=== PATIENT | female | born 1960 | race Caucasian/White ===

== ENCOUNTER → 2016-09-28 | Outpatient (CLI) | payer BC ==
[~2016-09-28] MED LIST: /AMLO25TA PO; ANOR1AER INH; ASPI1TAB PO; ATOR40TA PO; BACITAB3 PO; DEPA500T; DYAZ37.5 PO; FERR325T PO; LEXA1TAB2 PO; NICO14PA TD; OSTETAB4 PO; PREM0.45 PO; PRIL20TA2 PO; REQU1TAB14 PO; SARAFEM PO; TYLE325T5 PO; ULTR50TA PO; VITA200016 PO; VITA20008 PO; VITA500C24 PO; WELLTAB40 PO; mvi
--- NOTE | 2016-09-28 14:02 | REPMRS ---
Patient History The patient states she had a clinical breast exam in 2015. Patient is postmenopausal. No known family history of cancer. Took hormonal contraceptives for 5 years. Took estrogen for 4 years. Took progesterone for 4 years. Digital Mammo Screening Bilat: September 28, 2016 - Exam #: [id number] Bilateral CC and MLO view(s) were taken. Technologist: Starla Villanueva, Technologist Prior study comparison: January 22, 2014, bilateral bilat screen digital mammo, performed at [facility] ([facility]). June 27, 2012, bilateral bilat screen digital mammo, performed at [facility] ([facility]). FINDINGS: There are scattered fibroglandular densities. There has been no change in the appearance of the mammogram from the prior studies. There is a mild amount of residual fibroglandular tissue which is fairly symmetric. There is no interval development of dominant mass, architectural distortion, or clustered microcalcification suggestive of malignancy. ASSESSMENT: BI-RADS/ACR category 1 mammogram. Negative. Recommendation Routine screening mammogram in 1 year (for women over age 40). This mammogram was interpreted with the aid of an FDA-approved computer-aided dectection system. Electronically Signed By: Josef Parker MD 09/28/16 [id number]
== END ==
LOC: M RAD 13:22
PROVIDERS: ATTEND Nurse Practitioner Adult Health
DX: Z12.31 Encounter for screening mammogram for malignant neoplasm of breast (principal); Z78.0 Asymptomatic menopausal state; Z79.3 Long term (current) use of hormonal contraceptives; Z79.899 Other long term (current) drug therapy

== ENCOUNTER → 2016-12-14 | Outpatient (REF) | payer BC ==
[~2016-12-14] MED LIST changes: -ATOR40TA PO; +ATOR40TA75 PO; +BACITAB PO; -BACITAB3 PO
[2016-12-14 15:18] LABS: RBC, URINE 0-1 /hpf (0-3); SQUAMOUS EPITHELIAL CELL URINE MOD AMOUNT /hpf (SMALL AMT); WBC, URINE NONE SEEN /hpf (0-3)
[2016-12-14 15:19] LABS: BACTERIA, URINE NONE SEEN; HYALINE CAST, URINE NONE SEEN /lpf (0-1); MICROSCOPIC EXAM PERFORMED
== END ==
LOC: M LAB REF 14:15
PROVIDERS: ATTEND Nurse Practitioner Adult Health
DX: R31.9 Hematuria, unspecified (principal)

== ENCOUNTER → 2017-03-26 | Outpatient (REF) | payer BC ==
[2017-03-26 18:00] LABS: URIC ACID 6.8 MG/DL (2.6-6.0)
== END ==
LOC: M LAB REF 16:47
PROVIDERS: ATTEND Nurse Practitioner Adult Health
DX: M25.50 Pain in unspecified joint (principal); M10.9 Gout, unspecified

== ENCOUNTER → 2017-04-01 | Outpatient (CLI) | payer BC ==
--- NOTE | 2017-04-02 05:19 | REP ---
Clinical: Pain centered at the first toe. Technique: AP, lateral, bilateral oblique views of the right foot. Findings: A fractured sesamoid bone(s) underlying the head of the first metatarsal bone are suggested and should be correlated with physical examination and mechanism of injury. Remainder examination appears normal. Impression: Fractured sesamoid bones are suspected at the head of the first metatarsal bone. Signed by Shayen Vigil MD 04/02/2017 05:11 A
--- NOTE | 2017-04-02 05:31 | REP ---
Clinical: Pain . Technique: AP, lateral, bilateral oblique and sunrise views left knee . Findings: The osseous structures and joint spaces are intact and normal for age. There is no evidence for acute fracture or dislocation. No joint effusion is appreciated. Surrounding soft tissues are unremarkable. No subcutaneous emphysema or radiodense foreign body. Impression: Age-appropriate left knee radiographs. No acute fracture or dislocation. Signed by Shayne Vigil MD 04/02/2017 05:23 A
== END ==
LOC: M RAD 16:51
PROVIDERS: ATTEND Nurse Practitioner Adult Health
DX: M25.562 Pain in left knee (principal)

== ENCOUNTER 2017-05-27 17:09 | Emergency (ER) | payer BC ==
[2017-05-27] MEDS: IBUPROFEN 600 MG TAB PO (20:30)
[2017-05-27] MEDS: PERCOCET 5MG/325MG TAB PO (20:31)
== END 2017-05-27 20:43 | disposition home or self-care (01) ==
LOC: M ED 17:09
DX: M25.561 Pain in right knee (principal); X50.1XXA Overexertion from prolonged static or awkward postures, initial encounter; Y92.099 Unspecified place in other non-institutional residence as the place of occurrence of the external cause; Y93.42 Activity, yoga; I10 Essential (primary) hypertension; K21.9 Gastro-esophageal reflux disease without esophagitis; F41.9 Anxiety disorder, unspecified; F17.200 Nicotine dependence, unspecified, uncomplicated; Z79.82 Long term (current) use of aspirin; Z79.899 Other long term (current) drug therapy; Z88.0 Allergy status to penicillin
CPT/HCPCS: 73564

== ENCOUNTER 2017-06-17 08:54 | Day surgery (SDC) | payer BC ==
[~2017-06-17 08:54] MED LIST changes: -/AMLO25TA PO; -ANOR1AER INH; -ASPI1TAB PO; -ATOR40TA75 PO; -BACITAB PO; -DEPA500T; -DYAZ37.5 PO; -FERR325T PO; -LEXA1TAB2 PO; +LIDOCAINE 2% INJ 100 MG/5 ML SDV (FOR ANES.) As Ordered; -NICO14PA TD; -OSTETAB4 PO; -PREM0.45 PO; -PRIL20TA2 PO; +PROPOFOL 200 MG/20 ML VIAL As Ordered; -REQU1TAB14 PO; -SARAFEM PO; -TYLE325T5 PO; -ULTR50TA PO; -VITA200016 PO; -VITA20008 PO; -VITA500C24 PO; -WELLTAB40 PO; -mvi
[2017-06-17] MEDS: NS 1,000 ML IV (09:30)
== END 2017-06-17 11:11 | disposition home or self-care (01) ==
LOC: M OPP 08:54
DX: Z12.11 Encounter for screening for malignant neoplasm of colon (principal); Z86.010 Personal history of colon polyps; D12.5 Benign neoplasm of sigmoid colon; K64.0 First degree hemorrhoids; K57.30 Diverticulosis of large intestine without perforation or abscess without bleeding; R12 Heartburn; K22.8 Other specified diseases of esophagus; K44.9 Diaphragmatic hernia without obstruction or gangrene; I10 Essential (primary) hypertension; E78.5 Hyperlipidemia, unspecified; K21.9 Gastro-esophageal reflux disease without esophagitis; G56.00 Carpal tunnel syndrome, unspecified upper limb; M19.90 Unspecified osteoarthritis, unspecified site; M54.9 Dorsalgia, unspecified; Z86.79 Personal history of other diseases of the circulatory system; E55.9 Vitamin D deficiency, unspecified; D64.9 Anemia, unspecified; F41.9 Anxiety disorder, unspecified; F32.9 Major depressive disorder, single episode, unspecified; R51 Headache; J44.9 Chronic obstructive pulmonary disease, unspecified; G47.30 Sleep apnea, unspecified; R06.83 Snoring; F17.210 Nicotine dependence, cigarettes, uncomplicated; Z88.0 Allergy status to penicillin; Z79.82 Long term (current) use of aspirin; Z79.899 Other long term (current) drug therapy; Z80.52 Family history of malignant neoplasm of bladder
CPT/HCPCS: 45380

== ENCOUNTER → 2017-06-27 | Outpatient (CLI) | payer BC | LOC: M RAD 16:24 | DX: M25.561 Pain in right knee (principal) ==

== ENCOUNTER → 2017-08-14 | Outpatient (REF) | payer BC ==
[2017-08-14 17:43] LABS: URIC ACID 6.6 MG/DL (2.6-6.0)
== END ==
LOC: M LAB REF 16:40
DX: R79.89 Other specified abnormal findings of blood chemistry (principal); R30.0 Dysuria
CPT/HCPCS: 84550

== ENCOUNTER → 2018-04-04 | Outpatient (REF) | payer BC ==
[2018-04-04 22:01] LABS: APPEARANCE, URINE HAZY (CLEAR); BACTERIA, URINE AUTO 1+ (NEGATIVE); BILIRUBIN, URINE AUTO NEGATIVE (NEGATIVE); BLOOD, URINE BLOOD 2+ (NEGATIVE); COLOR, URINE YELLOW (YELLOW); GLUCOSE, URINE (UA) AUTO NEGATIVE (NEGATIVE); KETONE, URINE AUTO NEGATIVE (NEGATIVE); LEUKOCYTE ESTERASE, URINE AUTO 3+ (NEGATIVE); NITRITE, URINE AUTO NEGATIVE (NEGATIVE); PROTEIN, URINE AUTO NEGATIVE (NEGATIVE); RBC, URINE AUTO 1 /HPF (0-3); SPECIFIC GRAVITY URINE AUTO 1.009 (1.002-1.035); SQUAMOUS EPITHELIAL CELL UR AU 0 /HPF (0-6); UROBILINOGEN, URINE AUTO 0.2 mg/dL (0.0-2.0); WBC, URINE AUTO 1 /HPF (0-3)
== END ==
LOC: M LAB REF 10:10
DX: N39.0 Urinary tract infection, site not specified (principal)
CPT/HCPCS: 81001

== ENCOUNTER → 2018-04-11 | Outpatient (REF) | payer BC ==
[~2018-04-11] MED LIST changes: +/AMLO25TA PO; +AMLO5TAB4; +ANOR1AER INH; +ASPI1TAB PO; +ATOR40TA75 PO; +BACITAB PO; +BENA10TA6; +DEPA500T; +DYAZ37.5 PO; +FERR325T PO; +LEXA1TAB2 PO; -LIDOCAINE 2% INJ 100 MG/5 ML SDV (FOR ANES.) As Ordered; +MELO7.5T7; +NICO14PA TD; +OSTETAB4 PO; +POTA20TA6; +PREM0.45 PO; +PRIL20TA2 PO; -PROPOFOL 200 MG/20 ML VIAL As Ordered; +PROT20TA11 PO; +REQU1TAB14 PO; +SARAFEM PO; +TRAM50TA2 PO; +TYLE325T5 PO; +ULTR50TA PO; +VITA200016 PO; +VITA20008 PO; +VITA400C7 PO; +VITA500C24 PO; +VITA500T PO; +WELLTAB40 PO; +mvi
[2018-04-11 17:58] LABS: PERCENT SATURATION 29.6 % (13.2-45.0)
== END ==
LOC: M LAB REF 17:11
PROVIDERS: ATTEND Nurse Practitioner Adult Health
DX: N18.9 Chronic kidney disease, unspecified (principal); D63.1 Anemia in chronic kidney disease

== ENCOUNTER → 2018-04-24 | Outpatient (REF) | payer BC | LOC: M LAB REF 16:33 | PROVIDERS: ATTEND Nurse Practitioner Adult Health | DX: R35.0 Frequency of micturition (principal) ==

== ENCOUNTER → 2018-07-30 | Outpatient (REF) | payer BC ==
[~2018-07-30] MED LIST changes: -/AMLO25TA PO; -AMLO5TAB4; +AMLO5TAB6; -ASPI1TAB PO; +ASPI81TA26 PO; +NICO14DI20 TD; -NICO14PA TD; +NORV2TAB PO
[2018-07-30 21:56] LABS: AMORPHOUS SEDIMENT SMALL (NEGATIVE); APPEARANCE, URINE CLEAR (CLEAR); BACTERIA, URINE AUTO 2+ (NEGATIVE); BILIRUBIN, URINE AUTO NEGATIVE (NEGATIVE); BLOOD, URINE BLOOD 2+ (NEGATIVE); COLOR, URINE YELLOW (YELLOW); GLUCOSE, URINE (UA) AUTO NEGATIVE (NEGATIVE); KETONE, URINE AUTO NEGATIVE (NEGATIVE); LEUKOCYTE ESTERASE, URINE AUTO 1+ (NEGATIVE); NITRITE, URINE AUTO POSITIVE (NEGATIVE); PROTEIN, URINE AUTO NEGATIVE (NEGATIVE); RBC, URINE AUTO 1 /HPF (0-3); SPECIFIC GRAVITY URINE AUTO 1.006 (1.002-1.035); SQUAMOUS EPITHELIAL CELL UR AU 2 /HPF (0-6); UROBILINOGEN, URINE AUTO 0.2 mg/dL (0.0-2.0); WBC, URINE AUTO 17 /HPF (0-3)
== END ==
LOC: M LAB REF 09:20
PROVIDERS: ATTEND Physician Assistant
DX: N39.0 Urinary tract infection, site not specified (principal)

== ENCOUNTER → 2018-08-28 | Outpatient (CLI) | payer BC ==
--- NOTE | 2018-08-29 03:29 | REP ---
Clinical: Hypertension and chronic medical renal disease. Technique: Parker scale and color Doppler evaluation of the kidneys and renal vasculature using curved array transducer. Findings: The kidneys are essentially normal in contour size and echogenicity and reniform shape without hydronephrosis, nephrolithiasis, cystic or renal mass lesion. Right kidney measures 10.6 x 5.7 x 5.5 cm . Left kidney measures 10.8 x 5.4 x 5.7 cm. Bladder is incompletely distended and grossly normal by current evaluation. Color Doppler evaluation of the renal vasculature demonstrates normal arterial wave patterns, velocities, renal aortic ratios, resistive indices and the acceleration time. No sonographic evidence for renal arterial stenosis noted. Renal vein is patent. Right Kidney: Peak arterial velocity: 148 cm/sec . Renal aortic ratio: 1.7 . Resistive indices: 0.76 - 0.82 . Acceleration times: 0.042 - 0.044 . Left kidney: Peak arterial velocity: 140 cm/sec . Renal aortic ratio: 1.6 . Resistive indices: 0.78 - 0.79 . Acceleration times: 0.026 - 0.048 . Impression: 1. Essentially normal appearance to the bilateral kidneys. 2. Subtle increased resistive indices alone are nonspecific. No definite sonographic evidence to suggest hypertension. Clinical correlation is warranted and if necessary consider CTA or MRA evaluation of the renal arteries. Electronically Signed by Shayne Vigil MD 08/29/2018 03:22 A
== END ==
LOC: M RAD 06:15
PROVIDERS: ATTEND Nurse Practitioner Adult Health
DX: Z86.79 Personal history of other diseases of the circulatory system (principal)

== ENCOUNTER → 2018-09-10 | Outpatient (REF) | payer BC ==
[2018-09-10 17:19] LABS: APPEARANCE, URINE CLEAR (CLEAR); BACTERIA, URINE AUTO NEGATIVE (NEGATIVE); BILIRUBIN, URINE AUTO NEGATIVE (NEGATIVE); BLOOD, URINE BLOOD 1+ (NEGATIVE); COLOR, URINE YELLOW (YELLOW); GLUCOSE, URINE (UA) AUTO NEGATIVE (NEGATIVE); KETONE, URINE AUTO NEGATIVE (NEGATIVE); LEUKOCYTE ESTERASE, URINE AUTO NEGATIVE (NEGATIVE); NITRITE, URINE AUTO NEGATIVE (NEGATIVE); PROTEIN, URINE AUTO NEGATIVE (NEGATIVE); RBC, URINE AUTO 14 /HPF (0-3); SPECIFIC GRAVITY URINE AUTO 1.013 (1.002-1.035); SQUAMOUS EPITHELIAL CELL UR AU 3 /HPF (0-6); UROBILINOGEN, URINE AUTO 0.2 mg/dL (0.0-2.0); WBC, URINE AUTO 1 /HPF (0-3)
== END ==
LOC: M SMT 16:55
PROVIDERS: ATTEND Nurse Practitioner Women's Health
DX: N39.0 Urinary tract infection, site not specified (principal)

== ENCOUNTER → 2018-09-25 | Outpatient (REF) | payer BC | LOC: M SMT 13:36 | PROVIDERS: ATTEND Podiatrist | DX: R31.29 Other microscopic hematuria (principal) ==

== ENCOUNTER → 2018-11-25 | Outpatient (REF) | payer BC ==
[~2018-11-25] MED LIST changes: -BENA10TA6; +BENA10TA9
== END ==
LOC: M LAB REF 17:04
PROVIDERS: ATTEND Nurse Practitioner Adult Health
DX: M10.9 Gout, unspecified (principal)

== ENCOUNTER → 2019-01-20 | Outpatient (REF) | payer BC ==
[2019-01-20 14:58] LABS: BACTERIA, URINE AUTO NEGATIVE (NEGATIVE); RBC, URINE AUTO 7 /HPF (0-3); SQUAMOUS EPITHELIAL CELL UR AU 1 /HPF (0-6); WBC, URINE AUTO 0 /HPF (0-3)
== END ==
LOC: M SMT 13:00
PROVIDERS: ATTEND Specialist
DX: R31.29 Other microscopic hematuria (principal)

== ENCOUNTER → 2019-01-22 | Outpatient (REF) | payer BC | LOC: M SMT 18:26 | PROVIDERS: ATTEND Specialist | DX: R31.29 Other microscopic hematuria (principal) ==

== ENCOUNTER 2019-01-29 18:28 | Emergency (ER) | payer BC ==
[~2019-01-29] VITALS: Ht 157.5 cm; Wt 97.7 kg
--- NOTE | 2019-01-29 19:35 | REPVR ---
PROCEDURE INFORMATION: Exam: US Duplex Left Lower Extremity Veins, Limited Exam date and time: 01/29/2019 7:24 PM Clinical history: 58 years old, female; Pain; Leg, lower; Left; Additional info: Lle pain; R/O dvt TECHNIQUE: Imaging protocol: Real-time Duplex ultrasound of the Left Lower Extremity with 2-D gruber scale, color Doppler flow and spectral waveform analysis with image documentation. Limited exam focused on the left lower extremity veins. COMPARISON: US Duplex, Ext,LOWER veins,unilat 04/06/2015 2:23 PM FINDINGS: Left deep veins: Unremarkable. The common femoral, femoral, proximal profunda femoral and popliteal veins are patent without thrombus. Normal Doppler waveforms. Normal compressibility and/or augmentation response. Left superficial veins: Unremarkable. Saphenofemoral junction is patent without thrombus. Soft tissues: Unremarkable. IMPRESSION: No DVT of the left lower extremity veins. Electronically signed by: Jossue Foley On 01/29/2019 19:35:10 PM
[2019-01-29 20:24] VITALS: BP 143/70
== END 2019-01-29 20:45 | disposition home or self-care (01) ==
LOC: M ED 18:28
DX: M79.662 Pain in left lower leg (principal); I10 Essential (primary) hypertension; K21.9 Gastro-esophageal reflux disease without esophagitis; F17.200 Nicotine dependence, unspecified, uncomplicated; Z79.82 Long term (current) use of aspirin; Z79.899 Other long term (current) drug therapy; Z88.0 Allergy status to penicillin

== ENCOUNTER → 2019-03-12 | Outpatient (REF) | payer BC ==
[2019-03-12 18:31] LABS: COMPLEMENT C3 131 MG/DL (90-180); COMPLEMENT C4 27 MG/DL (10-40); RHEUMATOID FACTOR QUANT < 10.0 IU/ML (<15.0)
[2019-03-13 09:18] LABS: HEPATITIS B SURFACE ANTIBODY POSITIVE (POSITIVE)
[2019-03-13 09:22] LABS: HEPATITIS B SURFACE ANTIGEN NEGATIVE (NEGATIVE)
[2019-03-13 09:48] LABS: HEPATITIS B CORE ANTIBODY IGM NEGATIVE (NEGATIVE)
[2019-03-17 14:07] LABS: ANCA-ATYPICAL <1:20 titer (Neg:<1:20); ANTI DS-DNA AB Negative (Negative); ANTI-GLOMERULAR BASEMENT MEMB 4 units (0-20); ANTINUCLEAR ANTIBODIES DIRECT Negative (Negative); CYTOPLASMIC NEUTROP AB ANCA-C <1:20 titer (Neg:<1:20); PERINUCLEAR AB ANCA-P <1:20 titer (Neg:<1:20); SJOGREN'S ANTI SS-A <0.2 AI (0.0-0.9); SJOGREN'S ANTI SS-B <0.2 AI (0.0-0.9)
== END ==
LOC: M LAB REF 17:26
PROVIDERS: ATTEND Internal Medicine Nephrology
DX: R31.9 Hematuria, unspecified (principal)

== ENCOUNTER → 2019-03-24 | Outpatient (CLI) | payer BC ==
[2019-03-24 18:18] LABS: BASO # 0.1 10^3/uL (0.0-0.2); BASO % 0.5 % (0.0-1.0); EOS # 0.3 10^3/uL (0.0-0.5); EOS % 2.8 % (0.0-3.0); HEMATOCRIT 37.4 % (36.0-47.0); HEMOGLOBIN 12.4 g/dl (12.0-15.5); LYMPH # 2.7 10^3/uL (1.5-5.0); LYMPH % 25.7 % (24.0-44.0); MEAN CORPUSCULAR HEMOGLOBIN 32.8 pg (27.0-33.0); MEAN CORPUSCULAR HGB CONC 33.2 g/dl (32.0-36.5); MEAN CORPUSCULAR VOLUME 98.9 fl (80.0-96.0); MONO # 0.7 10^3/uL (0.0-0.8); MONO % 6.4 % (0.0-5.0); NEUTROPHILS # 6.6 10^3/uL (1.5-8.5); NEUTROPHILS % 63.9 % (36.0-66.0); PLATELET COUNT, AUTOMATED 318 10^3/uL (150-450); RED BLOOD COUNT 3.78 10^6/uL (4.00-5.40); WHITE BLOOD COUNT 10.4 10^3/uL (4.0-10.0)
[2019-03-24 18:43] LABS: ALBUMIN 3.8 GM/DL (3.2-5.2); PERCENT SATURATION 21.1 % (13.2-45.0)
== END ==
LOC: M LAB 16:49
PROVIDERS: ATTEND Orthopaedic Surgery
DX: Z01.818 Encounter for other preprocedural examination (principal); M16.12 Unilateral primary osteoarthritis, left hip; M25.559 Pain in unspecified hip

== ENCOUNTER → 2019-04-07 | Outpatient (CLI) | payer BC | LOC: M PT 15:32 | PROVIDERS: ATTEND Orthopaedic Surgery | DX: M16.12 Unilateral primary osteoarthritis, left hip (principal) ==

== ENCOUNTER → 2019-04-16 | Outpatient (CLI) | payer BC ==
--- NOTE | 2019-04-16 19:46 | REP ---
Chest x-ray: Two views. History: Tobacco use. Comparison study: January 07, 2016. Findings: The lungs are well inflated and clear. The pleural angles are sharp. Heart is not enlarged. Pulmonary vasculature is not increased. No significant bony abnormality. Impression: No acute disease. Electronically Signed by Berry Lemos MD 04/16/2019 07:38 P
== END ==
LOC: M RAD 19:14
PROVIDERS: ATTEND Nurse Practitioner Adult Health
DX: Z01.811 Encounter for preprocedural respiratory examination (principal); F17.200 Nicotine dependence, unspecified, uncomplicated

== ENCOUNTER 2019-05-28 11:21 | Outpatient (RCR) | payer BC ==
[~2019-05-28 11:21] MED LIST changes: -BENA10TA9; +BENA1TAB24
== END 2019-05-29 ==
LOC: M PT 11:21
PROVIDERS: ATTEND Orthopaedic Surgery
DX: Z96.642 Presence of left artificial hip joint (principal)

== ENCOUNTER 2019-06-11 10:39 | Outpatient (RCR) | payer BC | END 2019-06-27 | LOC: M PT 10:39 | PROVIDERS: ATTEND Orthopaedic Surgery | DX: Z96.642 Presence of left artificial hip joint (principal) ==

== ENCOUNTER → 2019-12-10 | Outpatient (CLI) | payer BC ==
[~2019-12-10] MED LIST changes: +AMIL5TAB4 PO; +AMLO1TAB24; -AMLO5TAB6; -BENA1TAB24; +BENA1TAB24 PO; +CHAN1PAK11 PO; +D31000TA2 PO; +FLUT1BLS5 INH; +METH-855 PO; +OXYB5TAB10 PO; +PANT40TA29 PO; +PERCOCET PO; +ROPI1TAB3 PO; +SEMA7TAB PO; +VITA-243 PO; +VITA400C53 PO; -VITA500T PO
== END ==
LOC: M LAB 15:34
PROVIDERS: ATTEND Orthopaedic Surgery
DX: Z13.88 Encounter for screening for disorder due to exposure to contaminants (principal); Z96.642 Presence of left artificial hip joint; T56.891A Toxic effect of other metals, accidental (unintentional), initial encounter

== ENCOUNTER → 2019-12-29 | Outpatient (REF) | payer BC ==
[2019-12-30 14:13] LABS: H PYLORI QUALITATIVE IgG NEGATIVE (NEGATIVE)
[2019-12-31 15:07] LABS: H PYLORI SERUM QUANT IGA <9.0 units (0.0-8.9); H PYLORI SERUM QUANT IGM <9.0 units (0.0-8.9)
== END ==
LOC: M LAB REF 13:31
PROVIDERS: ATTEND Nurse Practitioner Adult Health
DX: K21.9 Gastro-esophageal reflux disease without esophagitis (principal)

== ENCOUNTER → 2020-01-08 | Outpatient (CLI) | payer BC ==
--- NOTE | 2020-01-28 14:16 | REP ---
LOW DOSE LUNG CT SCREENING EXAMINATION: CLINICAL: Nicotine dependence. COMPARISON: Chest CT dated 01/07/16. FINDINGS: The lung travis demonstrate scattered areas of ground glass opacity similar to prior examination, which are nonspecific. A few small stable noncalcified nodules and nonfollowed densities measuring up to 4.5 mm are identified and essentially unchanged. No new area of consolidation or suspicious nodule/mass appreciated. No pleural effusion. The tracheobronchial tree is patent. Limited evaluation of the mediastinum demonstrates atherosclerotic changes to the thoracic aorta and coronary arteries. IMPRESSION: Lung-RADS category 2. Stable small densities up to 4.5 mm. Management recommendations include annual [address] screening. MTDD
== END ==
LOC: M RAD 16:45
PROVIDERS: ATTEND Nurse Practitioner Adult Health
DX: R91.8 Other nonspecific abnormal finding of lung field (principal); F17.218 Nicotine dependence, cigarettes, with other nicotine-induced disorders

== ENCOUNTER 2020-01-20 08:29 | Inpatient (IN) | payer BC ==
[~2020-01-20] VITALS: Ht 152.4 cm; Wt 92.5 kg
[~2020-01-20 08:29] MED LIST changes: -AMIL5TAB4 PO; -CHAN1PAK11 PO; -D31000TA2 PO; -FLUT1BLS5 INH; -METH-855 PO; -OXYB5TAB10 PO; -PANT40TA29 PO; -PERCOCET PO; -ROPI1TAB3 PO; -SEMA7TAB PO; -VITA400C53 PO
[2020-01-20] MEDS ORDERED: FLUT1BLS5 INH (08:39)
[2020-01-20] MEDS ORDERED: OXYB5TAB10 PO (08:39)
[2020-01-20] MEDS ORDERED: PANT40TA29 PO (08:39)
[2020-01-20] MEDS ORDERED: METH-855 PO (08:39)
[2020-01-20] MEDS ORDERED: AMIL5TAB4 PO (08:39)
[2020-01-20] MEDS ORDERED: SEMA7TAB PO (08:39)
[2020-01-20 09:24] LABS: BASO % 0.3 % (0.0-1.0); EOS # 0.1 10^3/uL (0.0-0.5); EOS % 0.5 % (0.0-3.0); LYMPH # 1.3 10^3/uL (1.5-5.0); LYMPH % 11.8 % (24.0-44.0); MEAN CORPUSCULAR HEMOGLOBIN 32.7 pg (27.0-33.0); MEAN CORPUSCULAR HGB CONC 33.3 g/dl (32.0-36.5); MONO # 0.5 10^3/uL (0.0-0.8); MONO % 4.3 % (0.0-5.0); NEUTROPHILS # 9.4 10^3/uL (1.5-8.5); NEUTROPHILS % 82.7 % (36.0-66.0); PLATELET COUNT, AUTOMATED 321 10^3/uL (150-450); RED BLOOD COUNT 3.98 10^6/uL (4.00-5.40); WHITE BLOOD COUNT 11.3 10^3/uL (4.0-10.0)
[2020-01-20 09:40] LABS: ALBUMIN 3.7 GM/DL (3.2-5.2); BILIRUBIN,DIRECT 0.2 MG/DL (0.0-0.2); BILIRUBIN,TOTAL 0.5 MG/DL (0.2-1.0); TOTAL PROTEIN 6.9 GM/DL (6.4-8.2)
[2020-01-20] MEDS ORDERED: ISOVUE-370 76% 100ML VIAL As Ordered ONE (10:15)
--- NOTE | 2020-01-20 10:53 | REPVR ---
PROCEDURE INFORMATION: Exam: CT Abdomen And Pelvis With Contrast Exam date and time: 01/20/2020 10:23 AM Age: 59 years old Clinical indication: Abdominal pain; Localized; Left lower quadrant (llq); Additional info: HX sbo, feels same/worse, llq pain TECHNIQUE: Imaging protocol: Computed tomography of the abdomen and pelvis with intravenous contrast. Radiation optimization: All CT scans at this facility use at least one of these dose optimization techniques: automated exposure control; mA and/or kV adjustment per patient size (includes targeted exams where dose is matched to clinical indication); or iterative reconstruction. Contrast material: ISOVUE 350; Contrast volume: 100 ml; Contrast route: INTRAVENOUS (IV); COMPARISON: CT ABD PELVIS W/O FOL BY WIT 10/07/2018 7:53 AM FINDINGS: Mediastinal space: A small sliding hiatal hernia is present above the level of the diaphragm. Liver: Normal. No mass. Gallbladder and bile ducts: The gallbladder is partially contracted. Pancreas: Moderate pancreatic atrophy. Spleen: Normal. No splenomegaly. Adrenals: Normal. No mass. Kidneys and ureters: Mild focal right renal cortical scarring. Stomach and bowel: The dilated mid small bowel loops without wall thickening, mild prominence of regional mesenteric venous arcades. Proximal and distal transitions appear to be present, 1 in the left upper quadrant immediately caudal to the distal transverse colon, 1 in the left central pelvis. Borderline gastric antral wall thickening. Ascending colonic submucosal adipose which may be seen with previous chronic colitis. Sigmoid and descending colonic diverticula are present without evidence of diverticulitis. Appendix: The vermiform appendix is normal. Intraperitoneal space: Nonspecific moderate posterior pelvic peritoneal fluid (13 Hounsfield units). Vasculature: Moderate aortic atherosclerotic calcification without aneurysm. The iliac arteries show moderate bilateral atherosclerotic calcifications without evidence of aneurysm. Atherosclerotic calcifications are present involving the RCA coronary artery. Lymph nodes: No enlarged lymph nodes. Urinary bladder: Partially obscured by streak artifact. No calculi as visualized. Reproductive: The uterus is status post hysterectomy. The ovaries are not identified. Bones/joints: Bilateral lower lumbar facet primary osteoarthritis. Mild L3-L4 and L5-S1 anterolisthesis. Diffuse osteopenia. Left bipolar hip replacement with streak artifact, borderline protrusio. Soft tissues: A small right inguinal hernia is present containing only intra-abdominal fat. IMPRESSION: 1. Findings with small bowel obstruction, possibly with closed-loop phenomena. 2. Nonspecific moderate posterior pelvic peritoneal fluid. 3. Possible mild antral gastritis. Clinical correlation with the patient's specific symptomatology is recommended. 4. Mild focal right renal cortical scarring. 5. Prior hysterectomy. 6. Diverticulosis. 7. Coronary atherosclerosis. 8. Small hiatal hernia. Electronically signed by: Satinder Sanchez On 01/20/2020 10:53:01 AM
[2020-01-20] MEDS ORDERED: NS 1,000 ML IV ONE (11:15)
[2020-01-20] MEDS ORDERED: diazePAM 10MG/2ML SYRINGE (J3360 PER 5MG) IV ONE (12:30)
[2020-01-20] MEDS ORDERED: D31000TA2 PO (12:52)
[2020-01-20] MEDS ORDERED: VITA400C53 PO (12:52)
[2020-01-20] MEDS ORDERED: CHAN1PAK11 PO (12:52)
[2020-01-20] MEDS ORDERED: ROPI1TAB3 PO (12:52)
--- NOTE | 2020-01-20 16:00 | HPEPDOC ---
General Surgery H&P Date of Admission Jan 20, 2020 Attending Physician: ALIZE LOVE MD History and Physical CHIEF COMPLAINT: Abdominal pain nausea and vomiting HISTORY OF PRESENT ILLNESS: Patient is a 59-year-old female who just 2 weeks ago was admitted at [facility] for 2 days and treated nonoperatively with nasogastric tube decompression for small bowel obstruction. Since discharge she slowly got better to the point that she felt almost back to normal though she was watching what she was eating. Over the weekend she started not feeling right again. After eating pizza Saturday evening she threw up on Saturday morning and also had an episode of diarrhea. She reports crampy abdominal discomfort and for the next couple of days continued to have episodes of nausea and vomiting including this morning for which she presented herself to the emergency room. She reports passing flatus intermittently. She denies any fevers or chills. She denies any sick contacts. She was also reporting bloating, burping a lot more and burping foul-smelling (fecal smelling) gas. Her only intra-abdominal surgery is bilateral tubal ligation as well as a vaginal hysterectomy. She also reports a remote history of splenic infracts. She has had colonoscopies done, last one was 2 years ago finding polyps. She denies any abnormal weight loss, change of bowel habits. Prior to 2 weeks ago has not had any previous bowel obstructions. HOME MEDICATIONS: Please see below. PAST MEDICAL HISTORY: 1. Hypertension. 2. Hyperlipidemia 3. Diabetes [id number] 4. History of brain aneurysm status post endovascular clipping 5. Reactive airway. She tells me she was ruled out for COPD 6. Arthritis 7. Depression and anxiety. PAST SURGICAL HISTORY: 1. Vaginal hysterectomy 2. Endovascular clipping of brain aneurysm 3. Left hip replacement 4. Bilateral carpal tunnel release. PERSONAL/SOCIAL HISTORY: Patient smokes 1 pack per day. Denies alcohol use or recreational drug use. REVIEW OF SYSTEMS: GENERAL: Symptoms stated above. Denies any abnormal weight loss or weight gain, fevers or chills or recent travel. HEENT: [Denies blurred vision and double vision. Denies ear symptoms. Denies hoarseness]. NECK: [Denies any neck pain]. CARDIOVASCULAR: [Denies chest pain and palpitations]. MUSCULOSKELETAL: Reports arthritis of the hips, knees. SKIN: [Denies rash]. NEUROLOGIC: Has history of clipping of brain aneurysm. PSYCHIATRIC: Reports anxiety and depression. ENDOCRINE: [Denies thyroid disease]. Reports diabetes HEMATOLOGY/ONCOLOGY: [Denies any bleeding or clotting disorder]. HEART: [Denies any chest pains, palpitations, paroxysmal dyspnea, orthopnea]. PULMONARY: Reports chronic cough, reactive airway. She was initially suspected COPD by her primary provider but ruled out with pulmonary. GASTROINTESTINAL: [Denies rectal bleeding, family history of colon cancer, constipation, diarrhea, dysphagia, heartburn and jaundice]. GENITOURINARY: [Denies dysuria, frequency, hematuria and nocturia]. ENDOCRINE: [Denies polydipsia, polyphagia, polyuria, heat or cold intolerance]. INFECTIOUS: [Denies any recent upper respiratory tract infection, UTI, need for use of antibiotics]. NUTRITION: Reports poor appetite. PHYSICAL EXAMINATION: VITAL SIGNS: Please see below. GENERAL APPEARANCE: Patient slightly uncomfortable though moves around without any increased discomfort. [Awake, alert, oriented]. HEENT: [Normocephalic, atraumatic. [place] palpebral conjunctivae. Anicteric sclerae. Lips dry]. NG tube in place draining CHEST: [No chest wall abnormalities. Normal respiratory motion/effort]. NECK: Previous food intake. LUNGS: [Lung sounds are clear to auscultation bilaterally. No wheezing monico reciated]. HEART: [No chest wall abnormalities. Heart rate and rhythm are regular with no murmurs]. ABDOMEN: Obese abdomen, mild to moderately distended but soft. She has focal tenderness over the left upper quadrant as well as suprapubic area without rebound or guarding. There is a small infraumbilical scar probably from the bilateral tubal ligation. No identifiable umbilical or groin hernias. SKIN: Warm dry. EXTREMITIES: No significant extremity edema. NEUROLOGICAL: Awake, alert and oriented . ANCILLARIES: . LABORATORY DATA: Please see below. MICROBIOLOGY: Please see below. IMAGING: CT scan abdomen and pelvis with IV contrast showing dilated mid small bowel loops without wall thickening, mild prominence of regional mesenteric venous arcades. Proximal and distal transitions appear to be present, one in the left upper quadrant immediately caudal to the distal transverse colon, one in the left central pelvis. Borderline gastric antral wall thickening.. IMPRESSION AND PLAN: Small bowel obstruction Presents with either a non-resolve or recurrent bowel obstruction that started 2 weeks ago. I would chance to review some of the records at [facility] when it was faxed to the emergency room describing the appearance of the CT scan there showing possible transition point at the right lower quadrant with a positive swirl sign. Her imaging today shows possibility of a complete bowel obstruction with a proximal and distal transition point. There is also fluid in the pelvis which seems to be present also in the prior CT. Radiologist was particular concern about a complete bowel obstruction versus possibility of a mesenteric venous ischemia. She is not acting like there is venous ischemia and she does not have any lactic acidosis so I think this is lower than my list of consideratios for her condition. There is a possibility of a complete obstruction thus I think we should be more aggressive in taking her to the OR to prevent full bowel perforation or segmental ischemia from a complete obstruction. Thus I think it is worthwhile to bring her to the operating room for diagnostic laparoscopy possibly lyse those adhesions. Given how she looks a little think she has ischemic bowel yet. He may very well surgical that the radiologist reading will not correlate with a complete obstruction but given the possibility, I think we should proceed to the operating room earlier than later. Patient was advised of this and has been agreement with the plan. Vital Signs Vital Signs Date Time Temp Pulse Resp B/P (MAP) Pulse Ox O2 Delivery O2 Flow Rate FiO2 01/20/20 11:15 97.4 76 18 134/63 (86) 95 Room Air Laboratory Data Labs 24H Laboratory Tests 2 01/20/20 08:58: Immature Granulocyte % (Auto) 0.4, Neutrophils (%) (Auto) 82.7H, Lymphocytes (%) (Auto) 11.8L, Monocytes (%) (Auto) 4.3, Eosinophils (%) (Auto) 0.5, Basophils (%) (Auto) 0.3, Neutrophils # (Auto) 9.4H, Lymphocytes # (Auto) 1.3L, Monocytes # (Auto) 0.5, Eosinophils # (Auto) 0.1, Basophils # (Auto) 0.0, Nucleated Red Blood Cells % (auto) 0.0, Total Bilirubin 0.5, Direct Bilirubin 0.2, Aspartate Amino Transf (AST/SGOT) 14, Alanine Aminotransferase (ALT/SGPT) 19, Alkaline Phosphatase 74, Total Protein 6.9, Albumin 3.7, Albumin/Globulin Ratio 1.2, Lipase 52L 9/23/20 08:59: POC Glucose (Misc Panel) 103, POC Sodium (Misc Panel) 140, POC Potassium (Misc Panel) 3.7, POC Chloride (Misc Panel) 101, POC Total CO2 (Misc Panel) 24.0, POC Blood Urea Nitrogen (Misc Panel 13, POC Ionized Calcium (Misc Panel) 4.8, POC Creatinine (Misc Panel) 0.7, POC Hematocrit (Misc Panel) 40.0 01/20/20 11:02: POC Lactate (Misc Panel) 0.50 CBC/BMP Laboratory Tests 01/20/20 08:58 Home Medications Scheduled Amiloride HCl (Amiloride HCl) 5 Mg Tablet, 5 MG PO DAILY, (Reported) Ascorbic Acid (Vitamin C) 500 Mg Tab, 500 MG PO DAILY, (Reported) Aspirin (Aspirin EC) 81 Mg Tab, 81 MG PO DAILY, (Reported) Atorvastatin Calcium (Atorvastatin Calcium) 40 Mg Tab, 40 MG PO DAILY, (Reported) Benazepril HCl (Benazepril HCl) 10 Mg Tab, 10 MG PO DAILY, (Reported) Cholecalciferol (Vitamin D3) (Vitamin D3) 1,000 Unit Tablet, 2,000 UNITS PO DAILY, (Reported) Escitalopram Oxalate (Lexapro) 20 Mg Tab, 20 MG PO DAILY, (Reported) Fluticasone Propion/Salmeterol (Fluticasone-Salmeterol 250-50) 1 Each Blst.w.dev, 1 PUFF INH BID, (Reported) L.acidoph/L.bulg/B.bif/S.therm (Bacid Caplet) 1 Tab Tab, 1 TAB PO DAILY, (Reported) Methenamine Hippurate (Methenamine Hippurate) 1 Gm Tablet, 1 GM PO DAILY, (Reported) Oxybutynin Chloride (Oxybutynin Chloride) 5 Mg Tablet, 5 MG PO BID, (Reported) Pantoprazole Sodium (Pantoprazole Sodium) 40 Mg Tablet.dr, 40 MG PO DAILY, (Reported) Ropinirole HCl (Ropinirole HCl) 1 Mg Tablet, 1 MG PO BID, (Reported) 1600/2000 Semaglutide (Rybelsus) 7 Mg Tablet, 7 MG PO DAILY, (Reported) Varenicline Tartrate (Chantix) 1 Each Tab.ds.pk, 1 BLANCO PO ASDIRECTED, (Reported) PT HAS NOT STARTED YET Vitamin E (Vitamin E) 400 Unit Capsule, 400 UNIT PO DAILY, (Reported) Allergies Coded Allergies: Penicillins (Verified Allergy, Intermediate, rash, 01/29/19) A-FIB/CHADSVASC A-FIB History Current/History of A-Fib/PAF?: No Current PO Anticoag Therapy: No ALIZE LOVE MD Jan 20, 2020 14:20
[2020-01-20] MEDS ORDERED: BUPIVACAINE HCL 0.25% 30ML VIAL As Ordered ONE (16:22)
[2020-01-20] MEDS ORDERED: LIDOCAINE 1% SDV 30ML VIAL As Ordered ONE (16:22)
[2020-01-20] MEDS ORDERED: ERTAPENEM 1GM VIAL(INVanz) (J1335 PER 500MG) As Ordered ONE (16:29)
[2020-01-20] MEDS ORDERED: LABETALOL 100MG/20ML VIAL As Ordered ONE (18:25)
[2020-01-20] MEDS ORDERED: PERCOCET 5MG/325MG TAB PO PRN (18:30)
[2020-01-20] MEDS ORDERED: ACETAMINOPHEN TAB 650MG DOSE (2X325MG) PO PRN (18:30)
[2020-01-20] MEDS ORDERED: MORPHINE 2 MG/ML 1ML VIAL (J2270) IV PRN (18:30)
[2020-01-20] MEDS ORDERED: KETOROLAC 30 MG/ML 1ML VIAL IV PRN (18:30)
[2020-01-20] MEDS ORDERED: ONDANSETRON 4MG/2ML VIAL IV PRN ×2 (18:30→19:00)
--- NOTE | 2020-01-20 18:40 | POST-OPPD ---
Postoperative Procedure Note Date Of Procedure: Jan 20, 2020 PREOPERATIVE DIAGNOSIS: Small bowel obstruction POSTOPERATIVE DIAGNOSIS: adhesive small bowel obstruction causing internal hernia FINDINGS: about5 separate bands from omentum to pelvic side wall/remnant of ovaries/tubes on the left causing internal hernia where a loop of bowel courses through and a couple of bowel to bowel adhesions that twisted the course of the bowel, no complete obstruction, no ischemia. PROCEDURE: Laparoscopic Lysis of adhesion, release of small bowel obstruction SURGEON: Adis Stewart MD ANESTHESIA: General Anesthesia SPECIMENS: none ESTIMATED BLOOD LOSS: 10 mLs DRAINS: none COMPLICATIONS: none POSTOPERATIVE CONDITION:stable, extubated to PACU dictation no.: [id number] ADIS STEWART MD Jan 20, 2020 18:40
[2020-01-20] MEDS ORDERED: FLUBLOK(EGG FREE)(QUAD)INFLUENZA VACC 0.5ML SYRINGE 18YRS & OLDER IM SCH (18:45)
[2020-01-20] MEDS ORDERED: LR 1,000 ML IV SCH (19:00)
[2020-01-20] MEDS ORDERED: oxyCODONE 5MG TAB PO PRN (19:00)
[2020-01-20] MEDS ORDERED: fentaNYL 100 MCG/2 ML INJECTION (J3010) IV PRN (19:00)
[2020-01-20] MEDS ORDERED: LABETALOL 100MG/20ML VIAL IV PRN (19:15)
[2020-01-20 19:47] VITALS: BP 150/72
[2020-01-20] MEDS: rOPINIRole 1MG TAB PO SCH (20:15)
[2020-01-20] MEDS: LR 1,000 ML IV SCH (20:15)
[2020-01-20] MEDS: oxyBUTYnin 5 MG TAB PO SCH (20:15)
[2020-01-20 20:17] VITALS: BP 160/75
[2020-01-20 20:47] VITALS: BP 157/94
[2020-01-20 21:47] VITALS: BP 152/61
[2020-01-20 22:47] VITALS: BP 153/64
[2020-01-20 23:47] VITALS: BP 158/67
[2020-01-21] VITALS (10 sets, daily range): BP systolic 134–157; BP diastolic 63–74; O2SAT 91–96
[2020-01-21] MEDS: LR 1,000 ML IV SCH ×2 (04:17→10:40)
[2020-01-21 06:56] LABS: BASO % 0.2 % (0.0-1.0); EOS # 0.2 10^3/uL (0.0-0.5); EOS % 1.5 % (0.0-3.0); HEMATOCRIT 34.2 % (36.0-47.0); HEMOGLOBIN 11.2 g/dl (12.0-15.5); LYMPH # 1.5 10^3/uL (1.5-5.0); LYMPH % 15.9 % (24.0-44.0); MEAN CORPUSCULAR HEMOGLOBIN 32.5 pg (27.0-33.0); MEAN CORPUSCULAR HGB CONC 32.7 g/dl (32.0-36.5); MEAN CORPUSCULAR VOLUME 99.1 fl (80.0-96.0); MONO # 0.5 10^3/uL (0.0-0.8); MONO % 5.5 % (0.0-5.0); NEUTROPHILS # 7.4 10^3/uL (1.5-8.5); NEUTROPHILS % 76.5 % (36.0-66.0); PLATELET COUNT, AUTOMATED 271 10^3/uL (150-450); RED BLOOD COUNT 3.45 10^6/uL (4.00-5.40); WHITE BLOOD COUNT 9.7 10^3/uL (4.0-10.0)
[2020-01-21 07:20] LABS: BLOOD UREA NITROGEN 10 MG/DL (7-18); CALCIUM LEVEL 8.5 MG/DL (8.5-10.1); CARBON DIOXIDE LEVEL 28 MEQ/L (21-32); CHLORIDE LEVEL 107 MEQ/L (98-107); CREATININE FOR GFR 0.72 MG/DL (0.55-1.30); GLOMERULAR FILTRATION RATE > 60.0 (>51); GLUCOSE, FASTING 83 MG/DL (70-100); POTASSIUM SERUM 3.8 MEQ/L (3.5-5.1); SODIUM LEVEL 142 MEQ/L (136-145)
[2020-01-21] MEDS: oxyBUTYnin 5 MG TAB PO SCH ×2 (09:03→20:08)
[2020-01-21] MEDS: PANTOPRAZOLE 40MG VIAL (C9113 PER 1) IV SCH (09:03)
[2020-01-21] MEDS: ENOXAPARIN 40MG/0.4ML SYRINGE (J1650 PER 10MG) SC SCH (09:03)
[2020-01-21] MEDS: ESCITALOPRAM OXALATE 10 MG TAB (LEXAPRO) PO SCH (09:03)
[2020-01-21] MEDS: ATORVASTATIN 20 MG TAB PO SCH (09:03)
[2020-01-21] MEDS: aMILoride 5 MG TAB PO SCH (10:21)
--- NOTE | 2020-01-21 11:54 | IPNPDOC ---
Text Note Date of Service The patient was seen on 01/21/20. NOTE POD1 Laparoscopic lysis of adhesions Patient reports she is feeling much better, no further abdominal cramping, some mild discomfort around the incision sites. She is passing flatus. There was only minimal drainage from the NG tube and this has been clamped since this morning. She is denying any nausea or further abdominal distention with nasogastric tube clamped. doing well ngt clamped since this morning, tolerating well,denies nausea. On examination Patient looks comfortable NG tube clamped. They flushed and suctioned the NG tube with only about 20 mL's of gastric contents drained out. Clear breath sounds auscultation bilaterally abdomen soft, less distended nontender to palpation over LUQ and suprapubic area, mild tenderness around incision sites. port sites c/d/i plan: Patient looks to be doing well. We will have the NG tube pulled back to suction and if residual in stomach <200 mLs, d/c ngt then start clears ambulate to hallways. VS,Anjelbone, I+O VS, Fishbone, I+O Laboratory Tests 01/21/20 06:39 Vital Signs Date Time Temp Pulse Resp B/P (MAP) Pulse Ox O2 Delivery O2 Flow Rate FiO2 01/21/20 10:00 98.9 63 16 146/63 (90) 100 Nasal Cannula 3.0 I&O- Last 24 Hours up to 6 AM 01/21/20 05:59 Intake Total 2950 ml Output Total 10 ml Balance 2940 ml ALIZE LOVE MD Jan 21, 2020 11:54
[2020-01-21] MEDS: rOPINIRole 1MG TAB PO SCH ×2 (16:58→20:08)
--- NOTE | 2020-01-21 20:47 | ECGEPIP ---
[facility] - ED Test Date: 2020-01-20 Pat Name: YOAN CELESTE Department: Room: - Gender: Female Senior Compensation Analyst: CHRISTIANA : 1960 Requested By: TAMERA Vo PA-C Order Number: [id number] Reading MD: Silvina Scanlon Measurements Intervals Max Rate: 59 P: 36 CA: 153 QRS: 3 QRSD: 97 T: 18 QT: 403 QTc: 399 Interpretive Statements SINUS BRADYCARDIA WITH SINUS ARRHYTHMIA DECREASED RATE 01/08/16 Electronically Signed on 01-21-2020 20:47:33 EDT by Silvina Scanlon
[2020-01-22] MEDS: LR 1,000 ML IV SCH ×2 (00:17→07:40)
[2020-01-22 02:00] VITALS: BP 146/74
[2020-01-22 06:00] VITALS: BP 153/77
[2020-01-22] MEDS ORDERED: MOM 30ML SUSPENSION UDC PO ONE (06:30)
[2020-01-22] MEDS: ATORVASTATIN 20 MG TAB PO SCH (08:31)
[2020-01-22] MEDS: oxyBUTYnin 5 MG TAB PO SCH (08:32)
[2020-01-22] MEDS: PANTOPRAZOLE 40MG VIAL (C9113 PER 1) IV SCH (08:32)
[2020-01-22] MEDS: ESCITALOPRAM OXALATE 10 MG TAB (LEXAPRO) PO SCH (08:32)
[2020-01-22] MEDS: aMILoride 5 MG TAB PO SCH (08:32)
[2020-01-22] MEDS: ENOXAPARIN 40MG/0.4ML SYRINGE (J1650 PER 10MG) SC SCH (08:32)
[2020-01-22 09:00] VITALS: O2SAT 96
[2020-01-22 10:00] VITALS: BP 146/62
[2020-01-22] MEDS ORDERED: PERCOCET PO (10:14)
--- NOTE | 2020-01-22 11:12 | DS.PDOC ---
Discharge Summary General Date of Admission Jan 20, 2020 at 18:17 Date of Discharge 01/22/2020 Attending Physician: ALIZE LOVE MD Discharge Summary PROCEDURES PERFORMED DURING STAY: Laparoscopic lysis of adhesion and release of bowel obstruction. ADMITTING DIAGNOSES: 1. Small bowel obstruction secondary to adhesions. 2. Morbid obesity with a BMI of 39.8 DISCHARGE DIAGNOSES: 1. Small bowel obstruction, status post laparoscopic lysis of adhesions with release of bowel obstruction . 2. Morbid obesity with BMI of 39.8 COMPLICATIONS/CHIEF COMPLAINT: Small Bowel Obstruction. HISTORY OF PRESENT ILLNESS: . Patient is a 59-year-old female who just 2 weeks ago was admitted at [facility] for 2 days and treated nonoperatively with nasogastric tube decompression for small bowel obstruction. Since discharge she slowly got better to the point that she felt almost back to normal though she was watching what she was eating. Over the weekend she started not feeling right again. After eating pizza Saturday evening she threw up on Saturday morning and also had an episode of diarrhea. She reports crampy abdominal discomfort and for the next couple of days continued to have episodes of nausea and vomiting including this morning for which she presented herself to the emergency room. She reports passing flatus intermittently. She denies any fevers or chills. She denies any sick contacts. She was also reporting bloating, burping a lot more and burping foul-smelling (fecal smelling) gas. Her only intra-abdominal surgery is bilateral tubal ligation as well as a vaginal hysterectomy. She also reports a remote history of splenic infracts. She has had colonoscopies done, last one was 2 years ago finding polyps. She denies any abnormal weight loss, change of bowel habits. Prior to 2 weeks ago has not had any previous bowel obstructions. HOSPITAL COURSE: Given the radiology reading for concern for complete bowel obstruction and brought her to the operating room for diagnostic laparoscopy and laparoscopic lysis of adhesion. She had a few omentum to the pelvic sidewall adhesions that was causing an internal hernia likewise a few bowel to bowel adhesions that was preventing the small bowel to come around the hernia and in the pelvis which was released relieving the obstruction. She did well perioperatively. Her nasogastric tube was clamped on postop day 1 and subsequently removed by the afternoon and she was started on clear liquids which she tolerated. She had spontaneous bowel movement the night of postop day 1 and also in the morning of postop day 2. She was advanced to regular diet which she tolerated subsequently she was discharged much improved. DISCHARGE MEDICATIONS: Please see below. ALLERGIES: Please see below. PHYSICAL EXAMINATION ON DISCHARGE: VITAL SIGNS: Please see below. GENERAL: Patient looks very comfortable HEENT: Normocephalic, atraumatic, lips appear moist NECK: Short, supple, no jugular venous distention CARDIOVASCULAR EXAMINATION: Regular heart rate and rhythm without murmurs RESPIRATORY EXAMINATION: Clear breath sounds auscultation bilaterally without wheezing, normal respiratory effort ABDOMINAL EXAMINATION: Obese, mildly distended, soft, nontender on palpation. 45 mm port sites in the abdomen covered with Dermabond without much ecchymosis or underlying hematoma. Nontender on palpation EXTREMITIES: No significant extremity edema SKIN: Warm and dry NEUROLOGICAL EXAMINATION: Awake, alert and oriented, ambulating independently LABORATORY DATA: Please see below. IMAGING: CT scan of the abdomen and pelvis PROGNOSIS: Good ACTIVITY: Light activity 1 week, advance as tolerated. DIET: Regular is tolerated DISCHARGE PLAN: Patient is discharged home on minimal pain medications. She can resume diet. Light activity 1 week. Follow up in the clinic 2 weeks DISPOSITION: . DISCHARGE INSTRUCTIONS: 1. As above. DISCHARGE CONDITION: Stable. TIME SPENT ON DISCHARGE: Greater than 30 minutes. Vital Signs/I&Os Vital Signs Date Time Temp Pulse Resp B/P (MAP) Pulse Ox O2 Delivery O2 Flow Rate FiO2 01/22/20 10:00 99.6 75 18 146/62 (90) 96 Room Air 01/22/20 06:00 3.0 I&O- Last 24 Hours up to 6 AM 01/22/20 05:59 Intake Total 1900 ml Output Total 90 ml Balance 1810 ml Laboratory Data Labs 24H Laboratory Tests 2 01/21/20 14:21: Lab Scanned Report Miscellaneous Lab Discharge Medications Scheduled Amiloride HCl (Amiloride HCl) 5 Mg Tablet, 5 MG PO DAILY, (Reported) Ascorbic Acid (Vitamin C) 500 Mg Tab, 500 MG PO DAILY, (Reported) Aspirin (Aspirin EC) 81 Mg Tab, 81 MG PO DAILY, (Reported) Atorvastatin Calcium (Atorvastatin Calcium) 40 Mg Tab, 40 MG PO DAILY, (Reported) Benazepril HCl (Benazepril HCl) 10 Mg Tab, 10 MG PO DAILY, (Reported) Cholecalciferol (Vitamin D3) (Vitamin D3) 1,000 Unit Tablet, 2,000 UNITS PO DAILY, (Reported) Escitalopram Oxalate (Lexapro) 20 Mg Tab, 20 MG PO DAILY, (Reported) Fluticasone Propion/Salmeterol (Fluticasone-Salmeterol 250-50) 1 Each Blst.w.dev, 1 PUFF INH BID, (Reported) L.acidoph/L.bulg/B.bif/S.therm (Bacid Caplet) 1 Tab Tab, 1 TAB PO DAILY, (Reported) Methenamine Hippurate (Methenamine Hippurate) 1 Gm Tablet, 1 GM PO DAILY, (Reported) Oxybutynin Chloride (Oxybutynin Chloride) 5 Mg Tablet, 5 MG PO BID, (Reported) Pantoprazole Sodium (Pantoprazole Sodium) 40 Mg Tablet.dr, 40 MG PO DAILY, (Reported) Ropinirole HCl (Ropinirole HCl) 1 Mg Tablet, 1 MG PO BID, (Reported) 1600/2000 Semaglutide (Rybelsus) 7 Mg Tablet, 7 MG PO DAILY, (Reported) Varenicline Tartrate (Chantix) 1 Each Tab.ds.pk, 1 BLANCO PO ASDIRECTED, (Reported) PT HAS NOT STARTED YET Vitamin E (Vitamin E) 400 Unit Capsule, 400 UNIT PO DAILY, (Reported) Scheduled PRN Oxycodone/Acetaminophen (Oxycodone-Acetaminophen 5-325) 1 Each Tablet, 1 TAB PO Q8HP PRN for MILD/MODERATE PAIN (PS 1-7) Allergies Coded Allergies: Penicillins (Verified Allergy, Intermediate, rash, 01/29/19) ALIZE LOVE MD Jan 22, 2020 11:12
[2020-01-22] MEDS ORDERED: FLUBLOK(EGG FREE)(QUAD)INFLUENZA VACC 0.5ML SYRINGE 18YRS & OLDER IM SCH (12:00)
--- NOTE | 2020-02-01 10:07 | RO ---
DATE OF OPERATION: 01/20/2020 PREOPERATIVE DIAGNOSIS: Small bowel obstruction, possible complete obstruction. POSTOPERATIVE DIAGNOSIS: Adhesive small bowel obstruction on at least three points without complete bowel obstruction. PROCEDURE: Laparoscopic lysis of adhesions, release of bowel obstruction. SURGEON: Adis Stewart MD ANESTHESIA: General anesthesia. SPECIMENS: None. ESTIMATED BLOOD LOSS: 10 mL COMPLICATIONS: None. REMARKS: The patient tolerated the procedure well. FINDINGS: There are at least five separate bands that I lysed. One of them is from the omentum to the left pelvic sidewall/remnant of the tubes and ovary, causing an internal hernia where a piece of bowel coursed through. There is also a separate band that is [id number] that is causing the bowel to twist onto itself. There is no ischemia or perforation, a small amount of pelvic serous ascites noted. There is a separate band over at the distal ileum that is adhered to the right pelvic sidewall which is tethering the bowel but not obviously causing obstruction that was also lysed. PROCEDURE NOTE: Miss Rod is a 59-year-old female who came to the emergency room with about a three day history of food intolerance, vomiting, abdominal distention though she is able to pass flatus. Two weeks ago, she was admitted at for the same symptoms, was treated nonoperatively and seemingly resolved at that time. She has a prior history of a vaginal hysterectomy and bilateral salpingo-oophorectomy. The workup in the ED including a CT of the abdomen and pelvis was suspicious for a possible complete obstruction where the radiologist identifies two points of obstruction, one proximal and one distal with dilatation of the bowel. I have decided to bring her to the OR for an urgent diagnostic laparoscopy and possible lysis of adhesions. The patient received Invanz 1 gm IV preoperatively for wound prophylaxis. She was brought to the operating room, laid supine on the table. Compression boots were placed on both lower extremities for DVT prophylaxis. General endotracheal anesthesia started. The patient already has an NG tube placed in the emergency room and this is draining bilious fluid. Her abdomen was prepped and draped in the usual sterile fashion. We performed a surgical timeout before start of the procedure. I entered the abdomen through a left upper quadrant incision. A Veress needle was inserted. Intra-abdominal placement confirmed with saline drop technique. CO2 insufflation started to a pressure of 15 mmHg. Using the same incision, a 5 mm optical port was placed under direct vision of the laparoscope. The area underneath the incision was then inspected for injury. None was found. She was placed in the Trendelenburg position, initially the left side tilted upwards to look in particular the area of the left side of the pelvis where the CT scan was pointing to a possible area of obstruction. I then placed an umbilical port as well as a right lower quadrant port under direct vision. She did not have any visible omental or bowel adhesions to the abdominal wall. On entering, there noticeably is a distended loop of bowel over the left side of the abdomen. It seems to be the bowel is tethered towards the pelvis. I started by lifting the omentum towards the upper quadrant and I immediately noticed two areas of excision of the omentum to the pelvic sidewall, one in the right lower quadrant and one in the left lower quadrant. The one in the left lower quadrant is tighter and seems to be causing some, at least partial obstruction to a loop of small bowel where it courses through as an internal hernia. Both of these adhesions were lysed and the omentum was retracted away. I initially followed the distal loops of bowel. This seems to be proximal ileum and there seems to be some tethering of the bowel. I ran the bowel retrogradely and found three other areas of dbsuc-pr-[id number] bands. One of those bowel bands seems to have twisted the bowel towards the retroperitoneum, causing also some obstruction and this was the one identified by a CT over the left upper quadrant area. The bowel bands were lysed sharply without any energy. I continued to run the bowel. There is a portion of the bowel with a whitish nodule of unclear significance over the mid-jejunum. I was also to run the bowel through the proximal jejunum but not entirely through the ligament of Treitz due to the amount of distention. I then came back running the bowel antegradely and as I come around to the pelvis on the medial side, there is another btpkq-tl-ymbfa band adhesion of unclear if this was causing a blockage but it was tethering the bowel downwards towards the pelvis. This was likewise divided sharply without cautery. At this point, it was harder to run the bowel towards the right lower quadrant area. Thus, I repositioned the patient now with the right side tilted up, still remaining in the Trendelenburg position. I then placed another port to the right upper quadrant area. I started by identifying the cecum as well as the appendix which looks normal. I then run the terminal ileum retrogradely and there is a band of tissue adhering the distal ileum to the right pelvic sidewall which was divided. After this, I could run the bowel back the previous area of small bowel and all the bowels are moving freely without any tethering. At this point, the procedure was terminated. The abdomen was deflated. All ports were removed. All port sites were 5 mm incisions and they were closed with subcuticular 4-0 Monocryl. Dermabond was then used for dressing. The patient tolerated the procedure well. She was successfully awakened, extubated and brought to the recovery room in a stable condition. ALETHA
== END 2020-01-22 12:04 | disposition home or self-care (01) | DRG 224 ==
LOC: M ED 08:29 → M SDC 15:14 → M MSPAV 18:17
PROVIDERS: ADMIT Surgery; ATTEND Surgery
PROC: 0DN84ZZ Release Small Intestine, Percutaneous Endoscopic Approach (ICD-10-PCS; 2020-01-20)
PROC: 0DNU4ZZ Release Omentum, Percutaneous Endoscopic Approach (ICD-10-PCS; principal; 2020-01-20 15:30)
DX: K56.52 Intestinal adhesions [bands] with complete obstruction (principal); E66.01 Morbid (severe) obesity due to excess calories; I10 Essential (primary) hypertension; Z68.39 Body mass index [BMI] 39.0-39.9, adult; E78.5 Hyperlipidemia, unspecified; E11.9 Type 2 diabetes mellitus without complications; J45.909 Unspecified asthma, uncomplicated; M19.90 Unspecified osteoarthritis, unspecified site; F32.9 Major depressive disorder, single episode, unspecified; F41.9 Anxiety disorder, unspecified; Z96.642 Presence of left artificial hip joint; Z86.79 Personal history of other diseases of the circulatory system

== ENCOUNTER → 2020-01-20 | Outpatient (REF) | payer BC | LOC: M LAB REF 11:17 | PROVIDERS: ATTEND Orthopaedic Surgery | DX: Z13.88 Encounter for screening for disorder due to exposure to contaminants (principal); Z96.642 Presence of left artificial hip joint; T56.891A Toxic effect of other metals, accidental (unintentional), initial encounter ==

== ENCOUNTER → 2020-02-22 | Outpatient (CLI) | payer BC ==
[~2020-02-22] MED LIST changes: +AMIL5TAB4 PO; +CHAN1PAK11 PO; +D31000TA2 PO; +FLUT1BLS5 INH; +GASTROGRAFIN SOLUTION 30ML (Q9963) As Ordered ONE; +ISOVUE-370 76% 100ML VIAL As Ordered ONE; +METH-855 PO; +OXYB5TAB10 PO; +PANT40TA29 PO; +PERCOCET PO; +ROPI1TAB3 PO; +SEMA7TAB PO; +VITA400C53 PO
--- NOTE | 2020-02-24 06:16 | REP ---
INDICATION: ABD PAIN, EPIGASTRIC PAIN. COMPARISON: 01/20/2020 TECHNIQUE: Axial contrast-enhanced images from the lung bases to the pubic symphysis using 100 cc Isovue 370 intravenous contrast material. Coronal and sagittal reformations obtained.. This CT examination was performed using the following dose reduction techniques: Automated exposure control, adjustment of mA and/or kv according to the patient's size, and the use of iterative reconstruction technique. FINDINGS: Liver, spleen, pancreas, gallbladder, left adrenal glands and bilateral kidneys are normal. Right adrenal gland demonstrates mild stable hyperplastic changes. The enteric system demonstrates small hiatal hernia similar to prior examination. The enteric system is without obstruction or acute inflammatory process. There is a presumed collapsed appearance to the transverse colon less likely reflecting underlying inflammatory bowel type changes. The terminal ileum, cecum and appendix appear normal in the right lower quadrant. Pelvis demonstrates normal bladder and evidence for prior hysterectomy. No ascites. No free air. No intraperitoneal or retroperitoneal adenopathy. Abdominal aorta and vasculature appear normal. Musculoskeletal structures are intact and without acute osseous abnormality. Incidental small fat containing right inguinal hernia again noted. IMPRESSION: 1. No definite acute abdominopelvic pathology appreciated. 2. Presumed collapsed appearance to the transverse colon less likely reflecting changes related to inflammatory bowel disease. Clinical correlation may be warranted. <Electronically signed by Shayne Vigil > 02/24/20 0608
== END ==
LOC: M RAD 13:49
PROVIDERS: ATTEND Surgery
DX: R10.84 Generalized abdominal pain (principal); K56.51 Intestinal adhesions [bands], with partial obstruction; K56.690 Other partial intestinal obstruction
CPT/HCPCS: 74177; Q9963; Q9967

== ENCOUNTER → 2020-03-08 | Outpatient (CLI) | payer BC ==
[~2020-03-08] MED LIST changes: -GASTROGRAFIN SOLUTION 30ML (Q9963) As Ordered ONE; -ISOVUE-370 76% 100ML VIAL As Ordered ONE; +METHACHOLINE KIT (J7674) INH ONE
--- NOTE | 2020-03-08 15:52 | PFTRPT ---
Height: 62.00 Inches Weight: 194.00 Lbs BSA: 1.89 Diagnosis: R06.02 DATE: 03/08/2020 ORDERED BY: Ramonita Mckeon RN, ANP QUALITY: Study of excellent technical quality. PROCEDURE: Under protocol, methacholine was administered. At a dose of 10 mg or 63.875 CDUs, a 25% decline of the FEV1 was noted. PC of 6.55 is significant. Flow rates did return to baseline post-bronchodilator administration. IMPRESSION: Positive methacholine challenge study. MTDD
== END ==
LOC: M CARPUL 14:51
PROVIDERS: ATTEND Nurse Practitioner Adult Health
DX: R06.02 Shortness of breath (principal)
CPT/HCPCS: 94070; J7674

== ENCOUNTER → 2020-05-30 | Outpatient (CLI) | payer BC ==
[~2020-05-30] MED LIST changes: -METHACHOLINE KIT (J7674) INH ONE
[2020-05-30 16:08] LABS: ALBUMIN 3.8 GM/DL (3.2-5.2); ALT/SGPT 18 U/L (12-78); BILIRUBIN,TOTAL 0.2 MG/DL (0.2-1.0); BLOOD UREA NITROGEN 15 MG/DL (7-18); CALCIUM LEVEL 9.2 MG/DL (8.8-10.2); CARBON DIOXIDE LEVEL 28 MEQ/L (21-32); CHLORIDE LEVEL 106 MEQ/L (98-107); CHOLESTEROL LEVEL 113 MG/DL (<200); CHOLESTEROL RISK RATIO 2.511 (<5); CREATININE FOR GFR 0.77 MG/DL (0.55-1.30); GLOMERULAR FILTRATION RATE > 60.0 (>45); GLUCOSE, FASTING 94 MG/DL (70-100); HDL CHOLESTEROL 45 MG/DL (>40); LDL CHOLESTEROL 47 MG/DL (<100); NON-HDL-C 68 MG/DL; POTASSIUM SERUM 3.9 MEQ/L (3.5-5.1); SODIUM LEVEL 143 MEQ/L (136-145); TRIGLYCERIDES LEVEL 107 MG/DL (<150)
[2020-05-30 16:42] LABS: CREATININE, URINE 38.7 MG/DL; MALB URINE SIEMENS 5.1 MG/L; MAU/CREAT RATIO 13.1 MCG/MG (0.0-30.0)
== END ==
LOC: M WUC 14:18
PROVIDERS: ATTEND Nurse Practitioner Adult Health
DX: E11.9 Type 2 diabetes mellitus without complications (principal); E78.2 Mixed hyperlipidemia

== ENCOUNTER → 2020-06-03 | Outpatient (REF) | payer BC ==
[2020-06-03 17:16] LABS: PERCENT SATURATION 16.3 % (13.2-45.0)
== END ==
LOC: M LAB REF 16:35
PROVIDERS: ATTEND Internal Medicine Nephrology
DX: D64.9 Anemia, unspecified (principal)

== ENCOUNTER 2020-06-13 12:48 | Outpatient (CLI) | payer BC ==
[~2020-06-13] VITALS: Ht 152.4 cm; Wt 87.5 kg
[~2020-06-13 12:48] MED LIST changes: +ALBUTEROL SULFATE 2.5 MG/0.5 ML INH NEB SOLN INH PRN; +EPINEPHrine INJ 1 MG/ML 1ML AMP IM PRN; +diphenhydrAMINE 50MG/ML VIAL (J1200) IV PRN; +methylPREDNISolone 125MG 2ML VIAL IV PRN
[2020-06-13] MEDS ORDERED: FERRIC CARBOXYMALTOSE INJ 750 MG, VIAL MATE ADAPTER 1 EACH in NS 250 ML IV ONE (13:30)
[2020-06-13] MEDS ORDERED: diphenhydrAMINE 50MG/ML VIAL (J1200) IV ONE (13:30)
[2020-06-13] MEDS ORDERED: NS 1,000 ML IV SCH (13:30)
[2020-06-13] MEDS ORDERED: AMLO10TA PO (13:33)
[2020-06-13 13:34] VITALS: BP 117/58
[2020-06-13 16:10] VITALS: BP 119/57
[2020-06-13 16:51] VITALS: BP 127/59
== END 2020-06-13 16:55 | disposition home or self-care (01) ==
LOC: M INFU 12:48
PROVIDERS: ATTEND Internal Medicine Nephrology
DX: D50.9 Iron deficiency anemia, unspecified (principal); Z88.0 Allergy status to penicillin
CPT/HCPCS: 96365; 96366; 96375; J1200; J1439

== ENCOUNTER 2020-06-20 09:59 | Outpatient (CLI) | payer BC ==
[~2020-06-20] VITALS: Ht 182.9 cm; Wt 104.7 kg
[~2020-06-20 09:59] MED LIST changes: +AMLO10TA PO
[2020-06-20 10:00] VITALS: BP 113/57
[2020-06-20] MEDS ORDERED: NS 1,000 ML IV SCH (10:00)
[2020-06-20] MEDS ORDERED: FERRIC CARBOXYMALTOSE INJ 750 MG, VIAL MATE ADAPTER 1 EACH in NS 250 ML IV ONE (10:00)
[2020-06-20] MEDS ORDERED: diphenhydrAMINE 50MG/ML VIAL (J1200) IV ONE (10:00)
[2020-06-20 13:10] VITALS: BP 113/59
== END 2020-06-20 13:10 | disposition home or self-care (01) ==
LOC: M INFU 09:59
PROVIDERS: ATTEND Internal Medicine Nephrology
DX: D50.9 Iron deficiency anemia, unspecified (principal); Z88.0 Allergy status to penicillin
CPT/HCPCS: 96365; 96366; 96375; J1200; J1439

== ENCOUNTER → 2020-08-09 | Outpatient (CLI) | payer BC ==
[~2020-08-09] MED LIST changes: -ALBUTEROL SULFATE 2.5 MG/0.5 ML INH NEB SOLN INH PRN; -EPINEPHrine INJ 1 MG/ML 1ML AMP IM PRN; -diphenhydrAMINE 50MG/ML VIAL (J1200) IV PRN; -methylPREDNISolone 125MG 2ML VIAL IV PRN
--- NOTE | 2020-08-10 02:05 | REPPI ---
INDICATION: ASTHMA COMPARISON: 04/16/2019 TECHNIQUE: PA and lateral. FINDINGS: The mediastinum and cardiac silhouette are normal. Mild chronic elevation to the right hemidiaphragm is appreciated. Right perihilar and right basilar atelectasis cannot be excluded. No effusion. No pneumothorax. Skeletal structures intact. IMPRESSION: Cannot exclude right lower lobe atelectasis versus chronic change. <Electronically signed by Shayne Vigil > 08/10/20 0207
== END ==
LOC: M PLAIMG 15:57
PROVIDERS: ATTEND Nurse Practitioner Adult Health
DX: J45.40 Moderate persistent asthma, uncomplicated (principal)

== ENCOUNTER → 2020-12-20 | Outpatient (CLI) | payer BC ==
--- NOTE | 2020-12-20 11:07 | REP ---
INDICATION: ABD PAIN COMPARISON: None. TECHNIQUE: Real time gruber scale and Doppler ultrasound examination evaluating the celiac axis and superior mesenteric artery. FINDINGS: Color Doppler interrogation and grayscale images demonstrate normal appearance, flow, velocities and wave patterns through the origins and proximal portions of the celiac axis and superior mesenteric artery. Velocities and wave patterns are normal at baseline as well as after appropriate meal challenge as documented on accompanying sonographic worksheet. Baseline velocities (PSV) Celiac axis: 114 cm/sec Proximal SMA: 133 cm/sec Mid SMA: 178 cm/sec Post challenge velocities (PSV) Proximal SMA: 130-165 cm/sec Mid SMA: 191-232 cm/sec IMPRESSION: Normal examination. <Electronically signed by Shayne Vigil > 12/20/20 1103
== END ==
LOC: M RAD 09:09
PROVIDERS: ATTEND Internal Medicine Gastroenterology
DX: R63.4 Abnormal weight loss (principal); R19.8 Other specified symptoms and signs involving the digestive system and abdomen; R10.84 Generalized abdominal pain

== ENCOUNTER → 2020-12-30 | Outpatient (CLI) | payer BC ==
[2020-12-30 13:44] LABS: ALBUMIN 3.4 GM/DL (3.2-5.2); ALT/SGPT 16 U/L (12-78); BILIRUBIN,TOTAL 0.4 MG/DL (0.2-1.0); BLOOD UREA NITROGEN 14 MG/DL (7-18); CALCIUM LEVEL 9.1 MG/DL (8.8-10.2); CARBON DIOXIDE LEVEL 29 MEQ/L (21-32); CHLORIDE LEVEL 108 MEQ/L (98-107); CHOLESTEROL LEVEL 115 MG/DL (<200); CHOLESTEROL RISK RATIO 2.446 (<5); CREATININE FOR GFR 0.65 MG/DL (0.55-1.30); GLOMERULAR FILTRATION RATE > 60.0 (>45); GLUCOSE, FASTING 100 MG/DL (70-100); HDL CHOLESTEROL 47 MG/DL (>40); LDL CHOLESTEROL 57 MG/DL (<100); NON-HDL-C 68 MG/DL; POTASSIUM SERUM 4.7 MEQ/L (3.5-5.1); SODIUM LEVEL 142 MEQ/L (136-145); TOTAL PROTEIN 6.6 GM/DL (6.4-8.2); TRIGLYCERIDES LEVEL 56 MG/DL (<150)
[2020-12-30 13:51] LABS: CREATININE, URINE 65.5 MG/DL; MALB URINE SIEMENS < 5.0 MG/L; MAU/CREAT RATIO 7.6 MCG/MG (0.0-30.0)
[2020-12-30 14:47] LABS: HEMOGLOBIN A1c 6.2 %
== END ==
LOC: M PLALAB 09:28
PROVIDERS: ATTEND Nurse Practitioner Adult Health
DX: E11.9 Type 2 diabetes mellitus without complications (principal); E78.2 Mixed hyperlipidemia

== ENCOUNTER → 2021-01-25 | Outpatient (CLI) | payer BC ==
--- NOTE | 2021-01-26 08:30 | REP ---
INDICATION: NICOTINE DEPENDENCE COMPARISON: Angio chest CT dated 01/07/2016 TECHNIQUE: Axial noncontrast images from the thoracic inlet to the upper abdomen using low-dose lung screening technique (LDCT). FINDINGS: Current examination demonstrates subtle but moderate areas of hazy parenchymal opacities along with primarily right mid to lower lobe mild linear atelectasis raising the possibility of an acute bronchitis which should be correlated with symptomatology. Small underlying nodules may be obscured. No obvious nodule or mass lesion identified. No effusion. No pneumothorax. Tracheobronchial tree is patent. IMPRESSION: Lung-RADS category 0-S. Findings suggesting mild bronchitis which should be correlated with symptomatology and which may obscure small pulmonary nodules. No obvious pulmonary nodule or mass lesion is identified. Consider either short-term repeat examination or scheduled 12 month follow-up LDCT. <Electronically signed by Shayne Vigil > 01/26/21 08
== END ==
LOC: M RAD 15:45
PROVIDERS: ATTEND Nurse Practitioner Adult Health
DX: F17.218 Nicotine dependence, cigarettes, with other nicotine-induced disorders (principal)

== ENCOUNTER → 2021-02-08 | Outpatient (REF) | payer BC ==
[2021-02-08 17:50] LABS: APPEARANCE, URINE CLEAR (CLEAR); BACTERIA, URINE AUTO NEGATIVE (NEGATIVE); BILIRUBIN, URINE AUTO NEGATIVE (NEGATIVE); BLOOD, URINE BLOOD 2+ (NEGATIVE); COLOR, URINE STRAW (YELLOW); GLUCOSE, URINE (UA) AUTO NEGATIVE (NEGATIVE); KETONE, URINE AUTO NEGATIVE (NEGATIVE); LEUKOCYTE ESTERASE, URINE AUTO NEGATIVE (NEGATIVE); NITRITE, URINE AUTO NEGATIVE (NEGATIVE); PROTEIN, URINE AUTO NEGATIVE (NEGATIVE); RBC, URINE AUTO 1 /HPF (0-3); SPECIFIC GRAVITY URINE AUTO 1.005 (1.002-1.035); SQUAMOUS EPITHELIAL CELL UR AU 0 /HPF (0-6); UROBILINOGEN, URINE AUTO 0.2 mg/dL (0.0-2.0); WBC, URINE AUTO 0 /HPF (0-3)
== END ==
LOC: M SMT 17:17
PROVIDERS: ATTEND Nurse Practitioner Women's Health
DX: N39.0 Urinary tract infection, site not specified (principal)

== ENCOUNTER → 2021-04-11 | Outpatient (CLI) | payer BC ==
[~2021-04-11] MED LIST changes: +POTA-151; -POTA20TA6
== END ==
LOC: M RAD 15:36
PROVIDERS: ATTEND Nurse Practitioner Adult Health
DX: R91.8 Other nonspecific abnormal finding of lung field (principal); J98.11 Atelectasis

== ENCOUNTER → 2021-06-07 | Outpatient (REF) | payer OTHER ==
[2021-06-07 18:26] LABS: PERCENT SATURATION 30.8 % (13.2-45.0)
[2021-06-08 17:29] LABS: MAGNESIUM LEVEL 1.7 MG/DL (1.7-2.2)
== END ==
LOC: M LAB REF 16:49
PROVIDERS: ATTEND Nurse Practitioner Family
DX: N18.2 Chronic kidney disease, stage 2 (mild) (principal); D50.9 Iron deficiency anemia, unspecified; D64.9 Anemia, unspecified

== ENCOUNTER → 2021-07-07 | Outpatient (CLI) | payer OTHER ==
[~2021-07-07] MED LIST changes: -D31000TA2 PO; -SEMA7TAB PO; +SEMA7TAB2 PO; +VITA100093 PO
[2021-07-07 16:02] LABS: HEMOGLOBIN A1c 6.2 %
[2021-07-07 16:14] LABS: ALBUMIN 3.7 GM/DL (3.2-5.2); ALT/SGPT 17 U/L (12-78); BILIRUBIN,TOTAL 0.3 MG/DL (0.2-1.0); BLOOD UREA NITROGEN 18 MG/DL (7-18); CARBON DIOXIDE LEVEL 30 MEQ/L (21-32); CHLORIDE LEVEL 106 MEQ/L (98-107); CREATININE FOR GFR 0.68 MG/DL (0.55-1.30); GLOMERULAR FILTRATION RATE > 60.0 (>45); GLUCOSE, FASTING 89 MG/DL (70-100); POTASSIUM SERUM 3.9 MEQ/L (3.5-5.1); SODIUM LEVEL 139 MEQ/L (136-145); TOTAL PROTEIN 6.7 GM/DL (6.4-8.2)
== END ==
LOC: M PLALAB 14:17
PROVIDERS: ATTEND Nurse Practitioner Adult Health
DX: E11.9 Type 2 diabetes mellitus without complications (principal)

== ENCOUNTER → 2021-08-01 | Outpatient (CLI) | payer OTHER | LOC: M WHC 16:17 | PROVIDERS: ATTEND Nurse Practitioner Adult Health | DX: Z12.31 Encounter for screening mammogram for malignant neoplasm of breast (principal); Z80.9 Family history of malignant neoplasm, unspecified ==

== ENCOUNTER → 2021-11-09 | Outpatient (CLI) | payer OTHER ==
[~2021-11-09] MED LIST changes: +AMIL25TA PO; +VITA400C83 PO
== END ==
LOC: M PLALAB 10:53
PROVIDERS: ATTEND Internal Medicine Hematology
DX: Z01.810 Encounter for preprocedural cardiovascular examination (principal)

== ENCOUNTER → 2021-11-13 | Outpatient (CLI) | payer OTHER | LOC: M LABSMTC 11:52 | PROVIDERS: ATTEND Anesthesiology | DX: Z01.818 Encounter for other preprocedural examination (principal); Z11.52 Encounter for screening for COVID-19 ==

== ENCOUNTER 2021-11-17 07:56 | Day surgery (SDC) | payer OTHER ==
[~2021-11-17] VITALS: Ht 152.4 cm; Wt 79.8 kg
[2021-11-17] VITALS (8 sets, daily range): BP systolic 136–149; BP diastolic 66–86
[2021-11-17] MEDS ORDERED: LR 1,000 ML IV SCH ×3 (08:20→16:15)
[2021-11-17 08:21] LABS: HEMATOCRIT 39.8 % (36.0-47.0); HEMOGLOBIN 13.3 g/dl (12.0-15.5); MEAN CORPUSCULAR HGB CONC 33.4 g/dl (32.0-36.5); MEAN CORPUSCULAR VOLUME 98.8 fl (80.0-96.0); PLATELET COUNT, AUTOMATED 273 10^3/uL (150-450); RED BLOOD COUNT 4.03 10^6/uL (4.00-5.40)
[2021-11-17 08:51] LABS: BLOOD UREA NITROGEN 28 MG/DL (7-18); CALCIUM LEVEL 9.3 MG/DL (8.8-10.2); CARBON DIOXIDE LEVEL 30 MEQ/L (21-32); CHLORIDE LEVEL 108 MEQ/L (98-107); CREATININE FOR GFR 0.72 MG/DL (0.55-1.30); GLOMERULAR FILTRATION RATE > 60.0 (>45); GLUCOSE, FASTING 104 MG/DL (70-100); POTASSIUM SERUM 4.6 MEQ/L (3.5-5.1); SODIUM LEVEL 140 MEQ/L (136-145)
[2021-11-17] MEDS ORDERED: LIDOCAINE 2% 100MG/5ML SDV (FOR ANES.) As Ordered ONE (09:26)
[2021-11-17] MEDS ORDERED: propofoL 200 MG/20 ML VIAL As Ordered ONE (09:26)
[2021-11-17] MEDS ORDERED: MIDAZOLAM INJ 2MG/2ML VIAL (J2250 PER 1MG) As Ordered ONE (09:26)
[2021-11-17] MEDS ORDERED: fentaNYL 100 MCG/2 ML INJECTION As Ordered ONE ×2 (09:26→12:00)
[2021-11-17] MEDS ORDERED: VASOPRESSIN INJ 20 UNITS/ML VIAL As Ordered ONE (10:19)
[2021-11-17] MEDS ORDERED: ONDANSETRON 4MG 2ML VIAL As Ordered ONE (10:54)
[2021-11-17] MEDS ORDERED: dexameTHASONE 4 MG/ML 1ML VIAL (J1100 PER 1MG) As Ordered ONE (10:54)
[2021-11-17] MEDS ORDERED: ACETAMINOPHEN 1000MG 100ML IV BTL (OFIRMEV) (J0131 PER 10MG) As Ordered ONE (10:57)
[2021-11-17] MEDS ORDERED: PHENYLephrine 500MCG 5ML (100MCG/ML) SYRINGE As Ordered ONE (11:05)
[2021-11-17] MEDS ORDERED: ePHEDrine SULFATE 25 MG/5 ML(5MG/ML) SYRINGE As Ordered ONE (11:05)
[2021-11-17] MEDS ORDERED: KETOROLAC 60MG 2ML VIAL As Ordered ONE (12:00)
[2021-11-17] MEDS ORDERED: ONDANSETRON 4MG 2ML VIAL IV PRN (12:40)
[2021-11-17] MEDS ORDERED: HYDROMORPHONE HCL 0.5 MG/ 0.5 ML SYRINGE (J1170 PER 1) IV PRN (12:40)
[2021-11-17] MEDS ORDERED: fentaNYL 100 MCG/2 ML INJECTION IV PRN (12:40)
[2021-11-17] MEDS ORDERED: oxyCODONE 5MG TAB PO PRN (12:40)
[2021-11-17] MEDS ORDERED: PERCOCET 5MG/325MG TAB PO PRN (16:15)
[2021-11-17] MEDS ORDERED: rOPINIRole 1MG TAB PO SCH (20:00)
[2021-11-17] MEDS: oxyBUTYnin 5 MG TAB PO SCH (20:36)
[2021-11-17] MEDS ORDERED: NICOTINE 21MG/24HR 1 EA TRANSDERMAL TD SCH (21:00)
[2021-11-18 01:30] VITALS: BP 130/65
[2021-11-18 05:30] VITALS: BP 130/60
[2021-11-18 08:04] VITALS: BP 154/78
[2021-11-18] MEDS: oxyBUTYnin 5 MG TAB PO SCH (08:53)
[2021-11-18] MEDS ORDERED: aMILoride 5 MG TAB PO ONE (09:00)
[2021-11-18] MEDS ORDERED: BENAZEPRIL 5MG TAB PO ONE (09:00)
[2021-11-18 10:28] VITALS: BP 131/61
== END 2021-11-18 11:00 | disposition home or self-care (01) ==
LOC: M SDC 07:56 → M PED 16:00 → M SDC 11-18 11:00
PROVIDERS: ATTEND Specialist
DX: N81.10 Cystocele, unspecified (principal); K21.9 Gastro-esophageal reflux disease without esophagitis; F32.A Depression, unspecified; K44.9 Diaphragmatic hernia without obstruction or gangrene; Z88.0 Allergy status to penicillin; Z79.899 Other long term (current) drug therapy; K57.92 Diverticulitis of intestine, part unspecified, without perforation or abscess without bleeding; F17.210 Nicotine dependence, cigarettes, uncomplicated
CPT/HCPCS: 36415; 57240; 80048; 85027; 88302; J0131; J1100; J1885; J2250; J2370; J2405; J3010

== ENCOUNTER → 2022-05-21 | Outpatient (CLI) | payer BC | LOC: M RAD 17:08 | PROVIDERS: ATTEND Nurse Practitioner Adult Health | DX: R91.8 Other nonspecific abnormal finding of lung field (principal); J47.9 Bronchiectasis, uncomplicated; I25.10 Atherosclerotic heart disease of native coronary artery without angina pectoris; I70.0 Atherosclerosis of aorta; M47.9 Spondylosis, unspecified ==

== ENCOUNTER → 2022-06-14 | Outpatient (REF) | payer OTHER, BC | LOC: M LAB REF 16:50 | PROVIDERS: ATTEND Nurse Practitioner Adult Health | DX: R91.8 Other nonspecific abnormal finding of lung field (principal) ==

== ENCOUNTER 2022-07-05 06:07 | Emergency (ER) | payer OTHER ==
[~2022-07-05] VITALS: Ht 152.4 cm; Wt 85.5 kg
[2022-07-05 06:07] VITALS: BP 145/67
== END 2022-07-05 07:25 | disposition home or self-care (01) ==
LOC: M ED 06:07
DX: S40.011A Contusion of right shoulder, initial encounter (principal); S00.83XA Contusion of other part of head, initial encounter; W20.8XXA Other cause of strike by thrown, projected or falling object, initial encounter; Y99.0 Civilian activity done for income or pay; I10 Essential (primary) hypertension; F41.9 Anxiety disorder, unspecified; F32.9 Major depressive disorder, single episode, unspecified; K21.9 Gastro-esophageal reflux disease without esophagitis; E78.00 Pure hypercholesterolemia, unspecified; F17.200 Nicotine dependence, unspecified, uncomplicated; Z79.82 Long term (current) use of aspirin; Z79.899 Other long term (current) drug therapy; Z88.0 Allergy status to penicillin

== ENCOUNTER → 2022-08-17 | Outpatient (CLI) | payer OTHER | LOC: M WHC 10:09 | PROVIDERS: ATTEND Nurse Practitioner Adult Health | DX: Z12.31 Encounter for screening mammogram for malignant neoplasm of breast (principal) ==

== ENCOUNTER → 2022-08-22 | Outpatient (CLI) | payer OTHER | LOC: M CARPUL 13:32 | PROVIDERS: ATTEND Nurse Practitioner Adult Health | DX: R01.1 Cardiac murmur, unspecified (principal) ==

== ENCOUNTER → 2022-11-29 | Outpatient (REF) | payer OTHER ==
[~2022-11-29] MED LIST changes: -ROPI1TAB3 PO; +ROPI1TAB73 PO
[2022-11-29 19:57] LABS: PERCENT SATURATION 28.3 % (13.2-45.0)
[2022-11-29 20:00] LABS: FERRITIN 243.8 NG/ML (7.3-270.7)
== END ==
LOC: M LAB REF 16:56
PROVIDERS: ATTEND Nurse Practitioner Family
DX: D50.9 Iron deficiency anemia, unspecified (principal); N39.0 Urinary tract infection, site not specified

== ENCOUNTER → 2023-01-09 | Outpatient (CLI) | payer OTHER ==
[2023-01-09 11:18] LABS: HEMOGLOBIN A1c 6.4 % (4.0-6.0)
[2023-01-09 11:28] LABS: CHOLESTEROL RISK RATIO 3.21 (<5); HDL CHOLESTEROL 35.8 MG/DL (>40); NON-HDL-C 79.2 MG/DL
== END ==
LOC: M PLALAB 07:56
PROVIDERS: ATTEND Nurse Practitioner Adult Health
DX: E78.2 Mixed hyperlipidemia (principal); E11.9 Type 2 diabetes mellitus without complications

== ENCOUNTER → 2023-05-31 | Outpatient (CLI) | payer OTHER ==
[~2023-05-31] MED LIST changes: -OXYB5TAB10 PO; +OXYB5TAB11 PO
== END ==
LOC: M RAD 12:38
PROVIDERS: ATTEND Nurse Practitioner Adult Health
DX: Z12.2 Encounter for screening for malignant neoplasm of respiratory organs (principal); F17.218 Nicotine dependence, cigarettes, with other nicotine-induced disorders; R91.1 Solitary pulmonary nodule; I70.0 Atherosclerosis of aorta; I25.10 Atherosclerotic heart disease of native coronary artery without angina pectoris; R91.8 Other nonspecific abnormal finding of lung field

== ENCOUNTER → 2023-07-17 | Outpatient (CLI) | payer OTHER ==
[~2023-07-17] MED LIST changes: -OXYB5TAB11 PO; +OXYB5TAB14 PO
[2023-07-17 10:45] LABS: ALBUMIN 3.6 G/DL (3.2-5.2)
[2023-07-17 10:49] LABS: BASO % 0.5 % (0.0-1.0); EOS # 0.1 10^3/uL (0.0-0.5); EOS % 1.8 % (0.0-3.0); HEMATOCRIT 39.4 % (36.0-47.0); HEMOGLOBIN 13.3 g/dl (12.0-15.5); LYMPH # 1.8 10^3/uL (1.5-5.0); LYMPH % 23.5 % (24.0-44.0); MEAN CORPUSCULAR HEMOGLOBIN 33.4 pg (27.0-33.0); MEAN CORPUSCULAR HGB CONC 33.8 g/dl (32.0-36.5); MONO # 0.6 10^3/uL (0.0-0.8); MONO % 7.6 % (2.0-8.0); NEUTROPHILS % 65.7 % (36.0-66.0); PLATELET COUNT, AUTOMATED 316 10^3/uL (150-450); RED BLOOD COUNT 3.98 10^6/uL (4.00-5.40); WHITE BLOOD COUNT 7.7 10^3/uL (4.0-10.0)
[2023-07-17 10:52] LABS: PERCENT SATURATION 18.7 % (13.2-45.0)
[2023-07-17 10:54] LABS: FERRITIN 208.7 NG/ML (7.3-270.7)
== END ==
LOC: M PLAIMG 08:27
PROVIDERS: ATTEND Orthopaedic Surgery
DX: M25.551 Pain in right hip (principal); M16.11 Unilateral primary osteoarthritis, right hip

== ENCOUNTER → 2023-08-09 | Outpatient (CLI) | payer OTHER ==
[2023-08-09 17:19] LABS: BASO # 0.1 10^3/uL (0.0-0.2); BASO % 0.5 % (0.0-1.0); EOS # 0.2 10^3/uL (0.0-0.5); EOS % 1.5 % (0.0-3.0); HEMATOCRIT 39.7 % (36.0-47.0); HEMOGLOBIN 13.2 g/dl (12.0-15.5); LYMPH # 2.5 10^3/uL (1.5-5.0); LYMPH % 25.4 % (24.0-44.0); MEAN CORPUSCULAR HEMOGLOBIN 32.6 pg (27.0-33.0); MEAN CORPUSCULAR HGB CONC 33.2 g/dl (32.0-36.5); MONO # 0.7 10^3/uL (0.0-0.8); MONO % 6.9 % (2.0-8.0); NEUTROPHILS # 6.4 10^3/uL (1.5-8.5); NEUTROPHILS % 65.3 % (36.0-66.0); PLATELET COUNT, AUTOMATED 324 10^3/uL (150-450); RED BLOOD COUNT 4.05 10^6/uL (4.00-5.40); WHITE BLOOD COUNT 9.8 10^3/uL (4.0-10.0)
[2023-08-09 17:37] LABS: HEMOGLOBIN A1c 5.6 % (4.0-6.0)
[2023-08-09 17:43] LABS: ALBUMIN 3.6 G/DL (3.2-5.2); ALKALINE PHOSPHATASE 73 U/L (46-116); ALT/SGPT 13 U/L (7.0-40); AST/SGOT 9 U/L (<34); BILIRUBIN,TOTAL 0.3 MG/DL (0.3-1.2); BLOOD UREA NITROGEN 19 MG/DL (9-23); CALCIUM LEVEL 9.2 MG/DL (8.3-10.6); CARBON DIOXIDE LEVEL 27 MMOL/L (20-31); CHLORIDE LEVEL 107 MMOL/L (98-107); GLOMERULAR FILTRATION RATE > 60.0 (>45); GLUCOSE, FASTING 84 MG/DL (74-106); POTASSIUM SERUM 4.2 MMOL/L (3.5-5.1); SODIUM LEVEL 140 MMOL/L (136-145); TOTAL PROTEIN 6.5 G/DL (5.7-8.2)
[2023-08-09 17:44] LABS: FERRITIN 232.4 NG/ML (7.3-270.7)
[2023-08-09 17:46] LABS: PARTIAL THROMBOPLASTIN TIME 23.7 SECONDS (24.8-34.2)
[2023-08-09 17:57] LABS: INR 1.14; PROTHROMBIN TIME 14.2 SECONDS (12.5-14.5)
== END ==
LOC: M PLALAB 15:44
PROVIDERS: ATTEND Family Medicine
DX: E11.9 Type 2 diabetes mellitus without complications (principal); I10 Essential (primary) hypertension

== ENCOUNTER → 2023-10-09 | Outpatient (CLI) | payer OTHER | LOC: M RAD 13:05 | PROVIDERS: ATTEND Orthopaedic Surgery | DX: M79.604 Pain in right leg (principal) ==

== ENCOUNTER → 2023-12-24 | Outpatient (CLI) | payer OTHER ==
[2023-12-24 14:00] LABS: ALBUMIN 3.8 G/DL (3.2-5.2); ALKALINE PHOSPHATASE 82 U/L (46-116); ALT/SGPT 11 U/L (7.0-40); AST/SGOT 11 U/L (<34); BILIRUBIN,TOTAL 0.4 MG/DL (0.3-1.2); BLOOD UREA NITROGEN 14 MG/DL (9-23); CALCIUM LEVEL 9.3 MG/DL (8.3-10.6); CARBON DIOXIDE LEVEL 27 MMOL/L (20-31); CHLORIDE LEVEL 105 MMOL/L (98-107); CHOLESTEROL LEVEL 122 MG/DL (<200); CHOLESTEROL RISK RATIO 3.59 (<5); GLOMERULAR FILTRATION RATE > 60.0 (>45); GLUCOSE, FASTING 94 MG/DL (74-106); HDL CHOLESTEROL 33.9 MG/DL (>40); LDL CHOLESTEROL 65.3 MG/DL (<100); NON-HDL-C 88.1 MG/DL; POTASSIUM SERUM 4.3 MMOL/L (3.5-5.1); SODIUM LEVEL 137 MMOL/L (136-145); TRIGLYCERIDES LEVEL 114 MG/DL (<150)
[2023-12-24 14:01] LABS: THYROID STIMULATING HORMONE 1.542 uIU/ML (0.55-4.78)
== END ==
LOC: M PLALAB 09:59
PROVIDERS: ATTEND Nurse Practitioner Adult Health
DX: I10 Essential (primary) hypertension (principal); Z13.29 Encounter for screening for other suspected endocrine disorder; E74.39 Other disorders of intestinal carbohydrate absorption

== ENCOUNTER → 2024-02-03 | Outpatient (REF) | payer OTHER ==
[~2024-02-03] MED LIST changes: +E-401CAP2 PO; -VITA400C83 PO
== END ==
LOC: M SFHCWAGY 13:15
PROVIDERS: ATTEND Specialist
DX: N39.0 Urinary tract infection, site not specified (principal)

== ENCOUNTER → 2024-02-03 | Outpatient (CLI) | payer OTHER | LOC: M WHC 09:12 | PROVIDERS: ATTEND Specialist | DX: Z12.31 Encounter for screening mammogram for malignant neoplasm of breast (principal) ==

== ENCOUNTER → 2024-06-18 | Outpatient (CLI) | payer OTHER ==
[2024-06-18 10:58] LABS: MAGNESIUM LEVEL 1.8 MG/DL (1.8-2.4)
== END ==
LOC: M PLALAB 07:42
PROVIDERS: ATTEND Internal Medicine Gastroenterology
DX: Z51.81 Encounter for therapeutic drug level monitoring (principal); K22.70 Barrett's esophagus without dysplasia; Z86.0100 Personal history of colon polyps, unspecified; E56.9 Vitamin deficiency, unspecified; Z79.899 Other long term (current) drug therapy

== ENCOUNTER → 2024-06-18 | Outpatient (CLI) | payer OTHER ==
[2024-06-18 10:59] LABS: CHOLESTEROL RISK RATIO 3.02 (<5)
[2024-06-18 11:00] LABS: FREE T4 1.22 NG/DL (0.89-1.76); THYROID STIMULATING HORMONE 1.67 uIU/ML (0.55-4.78)
== END ==
LOC: M PLALAB 07:39
PROVIDERS: ATTEND Nurse Practitioner Adult Health
DX: E78.2 Mixed hyperlipidemia (principal); E74.39 Other disorders of intestinal carbohydrate absorption; Z13.29 Encounter for screening for other suspected endocrine disorder

== ENCOUNTER → 2024-07-02 | Outpatient (CLI) | payer OTHER | LOC: M RAD 09:45 | PROVIDERS: ATTEND Nurse Practitioner Adult Health | DX: Z87.891 Personal history of nicotine dependence (principal) ==

== ENCOUNTER → 2024-08-21 | Outpatient (REF) | payer OTHER ==
[~2024-08-21] MED LIST changes: +AMLO-751 PO; -AMLO10TA PO
== END ==
LOC: M LAB REF 16:58
PROVIDERS: ATTEND Nurse Practitioner Family
DX: N39.0 Urinary tract infection, site not specified (principal)

== ENCOUNTER → 2025-01-27 | Outpatient (CLI) | payer OTHER ==
[~2025-01-27] MED LIST changes: +METH-1100 PO; -METH-855 PO
[2025-01-27 11:04] LABS: ALT/SGPT 16 U/L (7.0-40); AST/SGOT 14 U/L (<34); CALCIUM LEVEL 8.4 MG/DL (8.3-10.6); CARBON DIOXIDE LEVEL 27 MMOL/L (20-31); CHLORIDE LEVEL 108 MMOL/L (98-107); CHOLESTEROL LEVEL 160 MG/DL (<200); CHOLESTEROL RISK RATIO 4.27 (<5); CREATININE FOR GFR 0.70 MG/DL (0.55-1.30); GLOMERULAR FILTRATION RATE > 90.0 (>45); LDL CHOLESTEROL 102.2 MG/DL (<100); NON-HDL-C 122.6 MG/DL; POTASSIUM SERUM 4.0 MMOL/L (3.5-5.1); SODIUM LEVEL 143 MMOL/L (136-145); TRIGLYCERIDES LEVEL 102 MG/DL (<150)
[2025-01-27 11:06] LABS: FREE T4 1.11 NG/DL (0.89-1.76)
[2025-01-27 11:12] LABS: ESTIMATED AVERAGE GLUCOSE 134.0 MG/DL (60-110)
== END ==
LOC: M PLALAB 07:13
PROVIDERS: ATTEND Nurse Practitioner Adult Health
DX: I10 Essential (primary) hypertension (principal); E78.2 Mixed hyperlipidemia; E74.39 Other disorders of intestinal carbohydrate absorption; Z13.29 Encounter for screening for other suspected endocrine disorder

== ENCOUNTER → 2025-02-25 | Outpatient (CLI) | payer OTHER | LOC: M RAD 10:30 | PROVIDERS: ATTEND Internal Medicine Cardiovascular Disease | DX: I73.9 Peripheral vascular disease, unspecified (principal); I65.29 Occlusion and stenosis of unspecified carotid artery ==

== ENCOUNTER → 2025-03-03 | Outpatient (REF) | payer OTHER | LOC: M LAB REF 16:47 | PROVIDERS: ATTEND Nurse Practitioner Family | DX: N39.0 Urinary tract infection, site not specified (principal) ==

== ENCOUNTER → 2025-03-04 | Outpatient (CLI) | payer OTHER | LOC: M WHC 16:36 | PROVIDERS: ATTEND Nurse Practitioner Adult Health | DX: Z12.31 Encounter for screening mammogram for malignant neoplasm of breast (principal); R92.313 Mammographic fatty tissue density, bilateral breasts ==

== ENCOUNTER → 2025-04-02 | Outpatient (CLI) | payer MEDICARE | LOC: M PLAIMG 09:49 | PROVIDERS: ATTEND Internal Medicine Cardiovascular Disease | DX: E78.5 Hyperlipidemia, unspecified (principal); I35.1 Nonrheumatic aortic (valve) insufficiency; I27.20 Pulmonary hypertension, unspecified ==

== ENCOUNTER → 2025-04-09 | Outpatient (CLI) | payer MEDICARE | LOC: M RAD 08:51 | PROVIDERS: ATTEND Nurse Practitioner Family | DX: N18.2 Chronic kidney disease, stage 2 (mild) (principal); R09.89 Other specified symptoms and signs involving the circulatory and respiratory systems ==